=== PATIENT | female | born 2000 | race Two or more races ===

== ENCOUNTER 2021-05-08 16:50 | Emergency (ER) | payer OTHER ==
[2021-05-08 17:10] LABS: RAPID STREP SCREEN Negative (Negative)
--- NOTE | 2021-05-08 17:41 | ED Physician Documentation ---
PD HPI HEENT - Stated complaint Stated Complaint: THROAT PX - Chief complaint Chief Complaint: Heent - History obtained from History obtained from: Patient - Additional information Additional information: 2 days of sore throat without fever or cough. Pain better after ibuprofen. Review of Systems Constitutional: denies: Fever, Chills, Myalgias, Fatigue Nose: denies: Rhinorrhea / runny nose Cardiac: denies: Chest pain / pressure, Palpitations PD PAST MEDICAL HISTORY - Allergies Allergies/Adverse Reactions: Allergies Allergy/AdvReac Type Severity Reaction Status Date / Time No Known Drug Allergies Allergy Verified 05/08/21 16:54 PD ED PE NORMAL - Vitals Vital signs reviewed: Yes - General General: Alert and oriented X 3, No acute distress - HEENT HEENT: Other (Tonsils are red but not swollen or exudative, no adenopathy.) - Neuro Neuro: Alert and oriented X 3, Normal speech Results - Vitals Vitals: Vital Signs - 24 hr 05/08/21 16:54 Temperature 36.5 C Heart Rate 88 Respiratory 16 Rate Blood Pressure 110/65 O2 Saturation 100 Oxygen O2 Source Room air - Labs Labs: Laboratory Tests 05/08/21 16:58 Group A Strep Rapid Negative Departure - Departure Disposition: Home, Self Care Clinical Impression: Viral pharyngitis Condition: Good Record reviewed to determine appropriate education?: Yes Instructions: ED Pharyngitis Viral Report Pending Forms: Activity restrictions
[2021-05-08 17:49] VITALS: BP 101/72
== END 2021-05-08 17:48 | disposition home or self-care (01) ==
LOC: ED 16:50
DX: J02.8 Acute pharyngitis due to other specified organisms (principal)
CPT/HCPCS: 87070; 87077; 87430; 99282; 99283

== ENCOUNTER 2021-05-10 17:33 | Emergency (ER) | payer OTHER ==
[2021-05-10 18:16] LABS: RAPID STREP SCREEN Negative (Negative)
[2021-05-10] MEDS ORDERED: CHERRY SYRUP 10 ML UDC PO ONE (19:59)
[2021-05-10] MEDS ORDERED: IBUPROFEN 800 MG TABLET PO STA (19:59)
[2021-05-10] MEDS ORDERED: PENICILLIN VK 250 MG TABLET PO STA (19:59)
[2021-05-10] MEDS ORDERED: DEXAMETHASONE 10 MG/ML VIAL PO STA (19:59)
--- NOTE | 2021-05-10 20:03 | ED Physician Documentation ---
History of Present Illness - Stated complaint Stated Complaint: THROAT PX - Chief complaint Chief Complaint: Heent - History obtained from History obtained from: Patient - History of Present Illness Timing: How many days ago (3) Pain level max: 5 Pain level now: 5 - Additonal information Additional information: Patient with a sore throat for the past 3 days. Fever, exudates on tonsils. Was seen here previously and negative rapid strep. Her throat culture is positive for group C strep.With eating and drinking, nothing makes it better. Review of Systems Constitutional: denies: Fever, Chills Throat: reports: Sore throat GI: denies: Vomiting : denies: Now EGA PD PAST MEDICAL HISTORY - Past Medical History Past Medical History: No - Past Surgical History Past Surgical History: No - Present Medications Home Medications: Ambulatory Orders Medication Instructions Recorded Confirmed Ibuprofen [Motrin] 800 mg PO Q8H PRN #30 tablet 05/10/21 Ondansetron Odt [Zofran] 4 mg TL Q6H PRN #10 tablet 05/10/21 Penicillin V Potassium 500 mg PO Q6HR #40 tablet 05/10/21 - Allergies Allergies/Adverse Reactions: Allergies Allergy/AdvReac Type Severity Reaction Status Date / Time No Known Drug Allergies Allergy Verified 05/10/21 17:58 - Social History Does the pt smoke?: No Smoking Status: Never smoker Does the pt drink ETOH?: No Does the pt have substance abuse?: No - Immunizations Immunizations are current?: Yes PD ED PE NORMAL - Vitals Vital signs reviewed: Yes - General General: Alert and oriented X 3, No acute distress, Well developed/nourished - HEENT HEENT: PERRL, Moist mucous membranes, Other (Posterior oropharynx is erythematous with tonsillar exudates. Normal phonation. No trismus. Uvula midline.) - Neck Neck: Supple, no meningeal sign - Cardiac Cardiac: RRR, Strong equal pulses - Respiratory Respiratory: No respiratory distress, Clear bilaterally - Abdomen Abdomen: Soft, Non tender, Non distended - Derm Derm: Warm and dry, No rash - Extremities Extremities: No edema - Neuro Neuro: Alert and oriented X 3 - Psych Psych: Normal mood, Normal affect Results - Vitals Vitals: Oxygen O2 Source Room air - Labs Labs: Microbiology 05/10/21 18:04 Group A Strep Throat Culture - Final Throat MIXED OROPHARYNGEAL DEYVI PRESENT. NO BETA STREP PRESENT IN CULTURE. Laboratory Tests 05/10/21 05/10/21 18:04 18:04 Coronavirus (PCR) NEGATIVE Group A Strep Rapid Negative PD MEDICAL DECISION MAKING - ED course Complexity details: reviewed results, considered differential, d/w patient ED course: Patient with strep pharyngitis. Culture positive. We will place on antibiotics and have her follow-up with her doctor. No evidence of peritonsillar abscess. Patient counseled regarding signs and symptoms for which I believe and urgent re-evaluation would be necessary. Patient with good understanding of and agreement to plan and is comfortable going home at this time This document was made in part using voice recognition software. While efforts are made to proofread this document, sound alike and grammatical errors may occur. Departure - Departure Disposition: 01 Home, Self Care Clinical Impression: Group C streptococcal infection Condition: Good Instructions: ED Strep Pharyngitis Conf Follow-Up: Provider,Other [Primary Care Provider] - Prescriptions: Penicillin V Potassium 500 mg PO Q6HR #40 tablet Ibuprofen [Motrin] 800 mg PO Q8H PRN #30 tablet PRN Reason: PAIN &/OR FEVER Ondansetron Odt [Zofran] 4 mg TL Q6H PRN #10 tablet PRN Reason: Nausea / Vomiting Comments: Your prescriptions were sent to [facility] in [place]. Please follow-up with your doctor for further care. Return if you worsen. Take all antibiotics until gone. Discharge Date/Time: 05/10/21 20:08
[2021-05-10 20:10] VITALS: BP 111/65
== END 2021-05-10 20:08 | disposition home or self-care (01) ==
LOC: ED 17:33
DX: R07.0 Pain in throat (principal); B95.4 Other streptococcus as the cause of diseases classified elsewhere; Z20.822 Contact with and (suspected) exposure to COVID-19
CPT/HCPCS: 87070; 87430; 87635; 99283; A9270

== ENCOUNTER 2021-06-28 11:59 | Emergency (ER) | payer OTHER ==
[2021-06-28] MEDS ORDERED: SODIUM CHLORIDE 0.9% 1,000 ML IV STA (12:12)
[2021-06-28 12:39] LABS: BILIRUBIN,URINE NEGATIVE (NEGATIVE); CLARITY,URINE HAZY (CLEAR); GLUCOSE, URINE (UA) NEGATIVE (NEGATIVE); KETONES,URINE (UA) NEGATIVE (NEGATIVE); LEUKOCYTE ESTERASE, URINE NEGATIVE (NEGATIVE); NITRITE,URINE NEGATIVE (NEGATIVE); OCCULT BLOOD,URINE LARGE (NEGATIVE); PH,URINE 5.5 PH (5.0-7.5); PROTEIN,URINE NEGATIVE (NEGATIVE); UROBILINOGEN,URINE 0.2 (NORMAL) E.U./dL (NORMAL)
[2021-06-28 12:42] LABS: HCG UR QUAL NEGATIVE
[2021-06-28 12:48] LABS: BASOPHILS # (AUTO) 0.1 10^3/uL (0.0-0.1); BASOPHILS % (AUTO) 0.7 %; EOSINOPHILS % (AUTO) 0.3 %; HCT - HEMATOCRIT 40.1 % (37.0-47.0); HGB - HEMOGLOBIN 13.2 g/dL (12.0-16.0); LYMPHOCYTES # (AUTO) 2.6 10^3/uL (1.5-3.5); MEAN CORPUSCULAR HEMOGLOBIN 30.3 pg (27.0-31.0); MEAN CORPUSCULAR HGB CONC 32.9 g/dL (32.0-36.0); MEAN PLATELET VOLUME 10.5 fL (7.9-10.8); MONOCYTES # (AUTO) 0.5 10^3/uL (0.0-1.0); MONOCYTES % (AUTO) 6.7 %; NEUTROPHILS # (AUTO) 3.8 10^3/uL (1.5-6.6); PLT - PLATELET COUNT 295 10^3/uL (130-450); RED BLOOD COUNT 4.36 10^6/uL (4.20-5.40); RED CELL DISTRIBUTION WIDTH 13.2 % (12.0-15.0); WHITE BLOOD COUNT 6.9 x10^3/uL (4.8-10.8)
[2021-06-28 12:53] LABS: BACTERIA,URINE Rare /HPF (None Seen); RBC,URINE TNTC /HPF (0-5); SQUAMOUS EPITHELIAL CELL,UR RARE Squamous (<= Few); WBC,URINE 0-3 /HPF (0-5)
[2021-06-28 13:02] LABS: ALBUMIN 4.7 g/dL (3.2-5.5); ALBUMIN/GLOBULIN RATIO 1.5 (1.0-2.2); BILIRUBIN,TOTAL 1.3 mg/dL (0.2-1.0); CALCIUM 9.3 mg/dL (8.5-10.3); CREATININE 0.8 mg/dL (0.4-1.0); TOTAL PROTEIN 7.9 g/dL (6.7-8.2)
[2021-06-28] MEDS ORDERED: IOVERSOL 320 100 ML VIAL IVP ONE ×2 (14:03→16:29)
--- NOTE | 2021-06-28 14:34 | ED Physician Documentation ---
PD HPI ABD PAIN - Stated complaint Stated Complaint: LOWER R ABD PX - Chief complaint Chief Complaint: Abd Pain - History obtained from History obtained from: Patient - Additional information Additional information: Patient comes emergency department chief complaint of right lower quadrant abdominal pain for the last 3 days. She states it started as a little ache, and it seemed to get worse since. Patient states it feels slightly better today than it did yesterday. No fevers or chills. Patient has not had any urinary symptoms. She is on her period. No decreased appetite. No nausea or vomiting. No abdominal surgical history. Patient is otherwise healthy. Review of Systems Ten Systems: 10 systems reviewed and negative Constitutional: reports: Reviewed and negative Eyes: reports: Reviewed and negative Ears: reports: Reviewed and negative Nose: reports: Reviewed and negative Throat: reports: Reviewed and negative Cardiac: reports: Reviewed and negative Respiratory: reports: Reviewed and negative GI: reports: Abdominal Pain : reports: Reviewed and negative Skin: reports: Reviewed and negative Musculoskeletal: reports: Reviewed and negative Neurologic: reports: Reviewed and negative Psychiatric: reports: Reviewed and negative Endocrine: reports: Reviewed and negative Immunocompromised: reports: Reviewed and negative PD PAST MEDICAL HISTORY - Past Surgical History Past Surgical History: No - Present Medications Home Medications: Ambulatory Orders Medication Instructions Recorded Confirmed Ibuprofen [Motrin] 800 mg PO Q8H PRN #30 tablet 05/10/21 Ondansetron Odt [Zofran] 4 mg TL Q6H PRN #10 tablet 05/10/21 Penicillin V Potassium 500 mg PO Q6HR #40 tablet 05/10/21 - Allergies Allergies/Adverse Reactions: Allergies Allergy/AdvReac Type Severity Reaction Status Date / Time No Known Drug Allergies Allergy Verified 06/28/21 12:12 - Social History Does the pt smoke?: No Smoking Status: Never smoker Does the pt drink ETOH?: No Does the pt have substance abuse?: No - Immunizations Immunizations are current?: Yes PD ED PE NORMAL - Vitals Vital signs reviewed: Yes - General General: Alert and oriented X 3, No acute distress, Well developed/nourished - HEENT HEENT: Atraumatic, PERRL, EOMI, Moist mucous membranes - Neck Neck: Supple, no meningeal sign - Cardiac Cardiac: RRR, No murmur, Strong equal pulses - Respiratory Respiratory: No respiratory distress, Clear bilaterally - Abdomen Abdomen: Soft, Non distended, Other (Moderate right lower quadrant tenderness, no rebound or guarding.) - Derm Derm: Normal color, Warm and dry, No rash - Extremities Extremities: No deformity, No edema, No calf tenderness / cord - Neuro Neuro: Alert and oriented X 3, 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, Normal speech - Psych Psych: Normal mood, Normal affect Results - Vitals Vitals: Oxygen O2 Source Room air - Labs Labs: Laboratory Tests 06/28/21 06/28/21 06/28/21 12:29 12:44 12:44 WBC 6.9 RBC 4.36 Hgb 13.2 Hct 40.1 MCV 92.0 MCH 30.3 MCHC 32.9 RDW 13.2 Plt Count 295 MPV 10.5 Neut # (Auto) 3.8 Lymph # (Auto) 2.6 [place] # (Auto) 0.5 Eos # (Auto) 0.0 Baso # (Auto) 0.1 Absolute Nucleated RBC 0.00 Nucleated RBC % 0.0 Sodium 139 Potassium 4.0 Chloride 104 Carbon Dioxide 25 Anion Gap 10.0 BUN 15 Creatinine 0.8 Estimated GFR (MDRD) 91 Glucose 91 Calcium 9.3 Total Bilirubin 1.3 H AST 19 ALT 15 Alkaline Phosphatase 49 Total Protein 7.9 Albumin 4.7 Globulin 3.2 Albumin/Globulin Ratio 1.5 Lipase 34 Urine Color YELLOW Urine Clarity HAZY Urine pH 5.5 Ur Specific [place] 1.025 Urine Protein NEGATIVE Urine Glucose (UA) NEGATIVE Urine Ketones NEGATIVE Urine Occult Blood LARGE H Urine Nitrite NEGATIVE Urine Bilirubin NEGATIVE Urine Urobilinogen 0.2 (NORMAL) Ur Leukocyte Esterase NEGATIVE Urine RBC TNTC H Urine WBC 0-3 Ur Squamous Epith Cells RARE Squamous Urine Bacteria Rare Ur Microscopic Review INDICATED Urine Culture Comments NOT INDICATED Urine HCG, Qual NEGATIVE - Rads (name of study) CT abd/pelvis Radiology: Final report received, EMP read indepedently, See rad report (neg) PD MEDICAL DECISION MAKING - ED course Complexity details: reviewed results, re-evaluated patient, considered differential, d/w patient ED course: Laboratory studies were unremarkable. Urinalysis was positive for blood, not surprisingly since patient is on her period, and negative for . CT scan of the abdomen pelvis was ordered and negative. We have discussed the need for follow-up and the usual indications for return. Departure - Departure Disposition: 01 Home, Self Care Clinical Impression: Abdominal pain Qualifiers: Abdominal location: right lower quadrant Qualified Code(s): R10.31 - Right lower quadrant pain Condition: Stable Instructions: ED Abdominal Pain Female Non-Specific Abdominal Pain Comments: Your CT scan and labs look good. Your urinalysis does not show any concerning findings. No emergent condition has been found as a cause for your pain. Fact that it is starting to get better is a good sign, and most likely, this trend will continue. He may take ibuprofen and/or Tylenol as needed to help the discomfort. Discharge Date/Time: 06/28/21 16:17
[2021-06-28 14:41] VITALS: BP 89/70
--- NOTE | 2021-06-28 15:35 | CT Report ---
PROCEDURE: Abdomen/Pelvis W INDICATIONS: RLQ pain CONTRAST: IV CONTRAST: Optiray 320 ml: 100 PO CONTRAST: *NO PO CONTRAST TECHNIQUE: After the administration of IV contrast, 5 mm thick sections acquired from the diaphragms to the symp hysis. 5 mm thick coronal and sagittal reformats were acquired. For radiation dose reduction, the f ollowing was used: automated exposure control, adjustment of mA and/or kV according to patient size. COMPARISON: None. FINDINGS: Image quality: Excellent. ABDOMEN: Lung bases: Lung bases are clear. Heart size is normal. Solid organs: Liver and spleen are normal in size and enhancement. Gallbladder is within normal sheth its Biliary system is non dilated. Pancreas enhances normally. No adrenal nodules. Kidneys demons trate normal size and enhancement, without hydronephrosis. Peritoneum and bowel: Bowel loops demonstrate normal wall thickness and caliber. No pneumoperitoneu m. Small amount of free fluid within the pelvis. Normal appendix. Nodes and vessels: No retroperitoneal or mesenteric adenopathy by size criteria. Aorta and inferior vena cava are normal in size. Miscellaneous: No ventral hernias. PELVIS: Genitourinary: Bladder wall thickness is normal. Miscellaneous: No inguinal hernias or adenopathy. Bones: No suspicious bony lesions. No vertebral body compression fractures. IMPRESSION: 1. No acute process. 2. Normal appendix. 3. Small amount of free fluid in the pelvis, which is within physiological limits in a menstruating f emale, and suggestive of a recently ruptured follicular ovarian cyst.. Reviewed by: Keyon Whitfield MD on 06/28/2021 3:33 PM PST Approved by: Keyon Whitfield MD on 06/28/2021 3:33 PM PST Station ID: [id number]
== END 2021-06-28 16:17 | disposition home or self-care (01) ==
LOC: ED 11:59
DX: R10.31 Right lower quadrant pain (principal)
CPT/HCPCS: 36415; 74177; 80053; 81001; 81025; 83690; 85025; 99283; 99284; Q9967; 81003; 87086

== ENCOUNTER 2021-10-18 07:54 | Emergency (ER) | payer OTHER ==
[2021-10-18 08:06] VITALS: BP 121/82
[2021-10-18 08:23] LABS: BILIRUBIN,URINE NEGATIVE (NEGATIVE); GLUCOSE, URINE (UA) NEGATIVE (NEGATIVE); KETONES,URINE (UA) NEGATIVE (NEGATIVE); LEUKOCYTE ESTERASE, URINE NEGATIVE (NEGATIVE); NITRITE,URINE NEGATIVE (NEGATIVE); OCCULT BLOOD,URINE TRACE-INTA (NEGATIVE); PROTEIN,URINE NEGATIVE (NEGATIVE); UROBILINOGEN,URINE 1 (NORMAL) E.U./dL (NORMAL)
[2021-10-18 08:26] LABS: CLARITY,URINE CLEAR (CLEAR); HCG UR QUAL NEGATIVE
[2021-10-18 08:28] LABS: BASOPHILS % (AUTO) 0.4 %; EOSINOPHILS # (AUTO) 0.1 10^3/uL (0.0-0.7); EOSINOPHILS % (AUTO) 1.4 %; HCT - HEMATOCRIT 40.6 % (37.0-47.0); HGB - HEMOGLOBIN 13.3 g/dL (12.0-16.0); LYMPHOCYTES # (AUTO) 1.5 10^3/uL (1.5-3.5); LYMPHOCYTES % (AUTO) 26.6 %; MEAN CORPUSCULAR HEMOGLOBIN 29.6 pg (27.0-31.0); MEAN CORPUSCULAR HGB CONC 32.8 g/dL (32.0-36.0); MEAN CORPUSCULAR VOLUME 90.4 fL (81.0-99.0); MEAN PLATELET VOLUME 10.3 fL (7.9-10.8); MONOCYTES # (AUTO) 0.4 10^3/uL (0.0-1.0); MONOCYTES % (AUTO) 7.1 %; NEUTROPHILS # (AUTO) 3.7 10^3/uL (1.5-6.6); NEUTROPHILS % (AUTO) 64.5 %; PLT - PLATELET COUNT 286 10^3/uL (130-450); RED BLOOD COUNT 4.49 10^6/uL (4.20-5.40); RED CELL DISTRIBUTION WIDTH 12.6 % (12.0-15.0); WHITE BLOOD COUNT 5.7 x10^3/uL (4.8-10.8)
[2021-10-18 08:38] LABS: ALBUMIN 4.2 g/dL (3.2-5.5); ALBUMIN/GLOBULIN RATIO 1.2 (1.0-2.2); BILIRUBIN,TOTAL 1.6 mg/dL (0.2-1.0); CALCIUM 8.6 mg/dL (8.5-10.3); CREATININE 0.8 mg/dL (0.4-1.0); POTASSIUM 3.8 mmol/L (3.5-5.0); TOTAL PROTEIN 7.8 g/dL (6.7-8.2)
[2021-10-18] MEDS ORDERED: PANTOPRAZOLE 40 MG TABLET PO STA (08:54)
--- NOTE | 2021-10-18 08:57 | ED Physician Documentation ---
PD HPI ABD PAIN - Stated complaint Stated Complaint: UPPER ABD PX - Chief complaint Chief Complaint: Abd Pain - History obtained from History obtained from: Patient - Additional information Additional information: The patient comes to the emergency department with chief complaint of ongoing issues with upper abdominal burning, gurgling, and mild nausea. She states that her stomach was "growling very loudly" last night, and that she was having a lot of burning then, that the little better this morning. She denies any right upper quadrant abdominal pain. She has a very faint sense of right lower quadrant pain which has come and gone chronically. She has occasional diarrhea but mostly normal bowel movements. No vomiting. No fevers or chills. The patient states that she has had the symptoms on and off for months and has tried to get her doctor to do food allergy testing. She is also concerned because she has a strong family history of gastritis and ulcers. However, she states she does not feel that her doctor thinks that anything significant is going on and patient states she has been told to just wait and let it go away on its own. She is not currently on any GI medications. Patient is otherwise healthy and has no other complaints at this time. Review of Systems Ten Systems: 10 systems reviewed and negative Constitutional: reports: Reviewed and negative Eyes: reports: Reviewed and negative Ears: reports: Reviewed and negative Nose: reports: Reviewed and negative Throat: reports: Reviewed and negative Cardiac: reports: Reviewed and negative Respiratory: reports: Reviewed and negative GI: reports: Abdominal Pain, Nausea, Diarrhea : reports: Reviewed and negative Skin: reports: Reviewed and negative Musculoskeletal: reports: Reviewed and negative Neurologic: reports: Reviewed and negative Psychiatric: reports: Reviewed and negative Endocrine: reports: Reviewed and negative Immunocompromised: reports: Reviewed and negative PD PAST MEDICAL HISTORY - Past Surgical History Past Surgical History: No - Present Medications Home Medications: Ambulatory Orders Medication Instructions Recorded Confirmed Famotidine [Pepcid] 20 mg PO BID #60 tablet 10/18/21 Omeprazole 40 mg PO DAILY #30 cap 10/18/21 - Allergies Allergies/Adverse Reactions: Allergies Allergy/AdvReac Type Severity Reaction Status Date / Time No Known Drug Allergies Allergy Verified 10/18/21 08:02 - Social History Does the pt smoke?: No Smoking Status: Never smoker Does the pt drink ETOH?: No Does the pt have substance abuse?: No - Immunizations Immunizations are current?: Yes PD ED PE NORMAL - Vitals Vital signs reviewed: Yes - General General: Alert and oriented X 3, No acute distress, Well developed/nourished - HEENT HEENT: Atraumatic, PERRL, EOMI, Moist mucous membranes - Neck Neck: Supple, no meningeal sign - Cardiac Cardiac: RRR, No murmur, Strong equal pulses - Respiratory Respiratory: No respiratory distress, Clear bilaterally - Abdomen Abdomen: Soft, Non distended, Other (Slight right lower quadrant tenderness, no rebound or guarding.) - Derm Derm: Normal color, Warm and dry, No rash - Extremities Extremities: No deformity, No edema - Neuro Neuro: Alert and oriented X 3, 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, Normal speech - Psych Psych: Normal mood, Normal affect Results - Vitals Vitals: Vital Signs - 24 hr 10/18/21 08:02 Temperature 37.3 C Heart Rate 64 Respiratory 19 Rate Blood Pressure 121/82 H O2 Saturation 100 Oxygen O2 Source Room air - Labs Labs: Laboratory Tests 10/18/21 10/18/21 10/18/21 08:08 08:17 08:17 WBC 5.7 RBC 4.49 Hgb 13.3 Hct 40.6 MCV 90.4 MCH 29.6 MCHC 32.8 RDW 12.6 Plt Count 286 MPV 10.3 Neut # (Auto) 3.7 Lymph # (Auto) 1.5 [place] # (Auto) 0.4 Eos # (Auto) 0.1 Baso # (Auto) 0.0 Absolute Nucleated RBC 0.00 Nucleated RBC % 0.0 Sodium 134 L Potassium 3.8 Chloride 104 Carbon Dioxide 25 Anion Gap 5.0 L BUN 13 Creatinine 0.8 Estimated GFR (MDRD) 91 Glucose 95 Calcium 8.6 Total Bilirubin 1.6 H AST 19 ALT 13 Alkaline Phosphatase 44 Total Protein 7.8 Albumin 4.2 Globulin 3.6 Albumin/Globulin Ratio 1.2 Lipase 37 Urine Color YELLOW Urine Clarity CLEAR Urine pH 6.0 Ur Specific [place] 1.020 Urine Protein NEGATIVE Urine Glucose (UA) NEGATIVE Urine Ketones NEGATIVE Urine Occult Blood TRACE-INTA Urine Nitrite NEGATIVE Urine Bilirubin NEGATIVE Urine Urobilinogen 1 (NORMAL) Ur Leukocyte Esterase NEGATIVE Ur Microscopic Review NOT INDICATED Urine Culture Comments NOT INDICATED Urine HCG, Qual NEGATIVE PD MEDICAL DECISION MAKING - ED course Complexity details: reviewed results, re-evaluated patient, considered differential, d/w patient ED course: The patient was worked up with labs and UA, which were unremarkable. She was given a dose of Protonix here in the emergency department. I did not feel that imaging was indicated, based on the patient's benign abdominal exam, but I do think that she may benefit from endoscopy and possibly GI referral just to give her a better idea of what is causing her symptoms and what can be done about it. I have prescribed omeprazole for the patient for at home. I have given her the contact information for GI clinic at [facility], though I have warned the patient that he may require referral from her primary care physician. We have discussed the usual indications for follow-up and return. Departure - Departure Disposition: Home, Self Care Clinical Impression: GERD (gastroesophageal reflux disease) Qualifiers: Esophagitis presence: esophagitis presence not specified Qualified Code(s): K21.9 - Gastro-esophageal reflux disease without esophagitis Gastritis Qualifiers: Gastritis type: unspecified gastritis Chronicity: chronic Gastritis bleeding: without bleeding Qualified Code(s): K29.50 - Unspecified chronic gastritis without bleeding Condition: Stable Instructions: ED PUD Vs Gastritis, ED GERD Follow-Up: MULU BAUER MD [Physician No Access] - Chetna Arias MD [Physician No Access] - VILMA WINN MD [Physician No Access] - DANGELO DE LA ROSA MD [Physician No Access] - Prescriptions: Omeprazole 40 mg PO DAILY #30 cap Famotidine [Pepcid] 20 mg PO BID #60 tablet Comments: You may call the gastroenterology clinic to make an appointment. They may require a referral from your primary doctor, however,. [facility] [place].
== END 2021-10-18 09:11 | disposition home or self-care (01) ==
LOC: ED 07:54
DX: K21.9 Gastro-esophageal reflux disease without esophagitis (principal); K29.50 Unspecified chronic gastritis without bleeding
CPT/HCPCS: 36415; 80053; 81003; 81025; 83690; 85025; 99283; 99284; A9270; 81001; 87086

== ENCOUNTER 2022-07-08 10:18 | Emergency (ER) | payer OTHER ==
[2022-07-08 10:26] VITALS: BP 108/82
--- NOTE | 2022-07-08 10:29 | ED Physician Documentation ---
PD HPI HEENT - Stated complaint Stated Complaint: RT SIDE FACE PX,CHEST PX - Chief complaint Chief Complaint: General - History obtained from History obtained from: Patient - History of Present Illness Timing - onset: How many hours ago (3), Today Timing - duration: Minutes (1) Timing - details: Abrupt onset, Now resolved Location: Other (had onset of right chest/scapular area pain that went to right side of neck/jaw. Lasted for a minute then went away. No pain since. Has had several episodes of right upper abd pain after eating the past week, transient. No cough, dyspnea. No exertional dyspnea/pain.) Associated symptoms: No: Fever, Congestion, Facial swelling, Cough Similar symptoms before: Has not had sx before Recently seen: Not recently seen, Other (did drive from [place] last week, but no leg swelling/pains.) Review of Systems Constitutional: denies: Fever, Chills Nose: denies: Rhinorrhea / runny nose, Congestion Throat: denies: Oral lesions / sores, Sore throat Cardiac: denies: Palpitations, Pedal edema, Calf pain Respiratory: denies: Dyspnea, Cough, Wheezing GI: denies: Nausea, Vomiting, Diarrhea Skin: denies: Rash, Lesions Neurologic: denies: Focal weakness, Numbness, Near syncope PD PAST MEDICAL HISTORY - Past Medical History Past Medical History: No - Past Surgical History Past Surgical History: No - Present Medications Home Medications: Ambulatory Orders Medication Instructions Recorded Confirmed Famotidine [Pepcid] 20 mg PO BID #60 tablet 10/18/21 Omeprazole 40 mg PO DAILY #30 cap 10/18/21 Famotidine [Pepcid] 20 mg PO DAILY #20 tablet 07/08/22 - Allergies Allergies/Adverse Reactions: Allergies Allergy/AdvReac Type Severity Reaction Status Date / Time No Known Drug Allergies Allergy Verified 07/08/22 10:26 - Social History Does the pt smoke?: No Smoking Status: Never smoker Does the pt drink ETOH?: No Does the pt have substance abuse?: No - Immunizations Immunizations are current?: Yes PD ED PE NORMAL - Vitals Vital signs reviewed: Yes - General General: Alert and oriented X 3, No acute distress, Well developed/nourished - Neck Neck: Supple, no meningeal sign, No adenopathy - Cardiac Cardiac: RRR, No murmur - Respiratory Respiratory: Clear bilaterally - Abdomen Abdomen: Normal bowel sounds, Soft, Non distended, Other (mild tender RUQ without guarding. ) - Derm Derm: Normal color, Warm and dry - Extremities Extremities: Normal ROM s pain, No edema, No calf tenderness / cord - Neuro Neuro: Alert and oriented X 3, No motor deficit, Normal speech Results - Vitals Vitals: Vital Signs - 24 hr 07/08/22 10:24 Temperature 37.8 C Heart Rate 63 Respiratory 16 Rate Blood Pressure 108/82 H O2 Saturation 100 Oxygen O2 Source Room air - EKG (time done) 11:06 Rate: Rate (enter#) (57) Rhythm: NSR Thompson: Normal Intervals: Normal [place] QRS: Normal Ischemia: Normal ST segments. No: ST elevation c/w ischemia, ST depression - Rads (name of study) upper abd U/S Radiology: Prelim report reviewed (normal), See rad report PD MEDICAL DECISION MAKING - ED course Complexity details: considered differential (transient pain this morning right chest/upper back to side of face. ECG normal. Has had some pain RUQ with eating, so U/S to eval GB. Normal. Consider gastritis. Nonpleuritic pain and no findings to suggest PE. PERC neg. ), d/w patient Departure - Departure Disposition: 01 Home, Self Care Clinical Impression: Chest pain Condition: Stable Record reviewed to determine appropriate education?: Yes Instructions: ED Chest Pain Atypical Unkn Cause Follow-Up: LISY LEVY ARNP [Primary Care Provider] - Prescriptions: Famotidine [Pepcid] 20 mg PO DAILY #20 tablet Comments: Your EKG appears normal without any signs of abnormal heart rhythm nor irritation of the heart. It is unclear the cause of your chest pain this morning. Regarding the episodes of lower thoracic flank pain after meals, consideration would be for an irritation of the stomach such as gastritis or duodenitis. Your ultrasound does not show any abnormality of the gallbladder pancreas liver. I would suggest perhaps famotidine daily for the next few weeks. See if your without the symptoms overall. Discharge Date/Time: 07/08/22 12:24
--- NOTE | 2022-07-08 12:11 | Ultrasound Report ---
PROCEDURE: Abdomen Limited INDICATIONS: episodic right abd/chest pains few days TECHNIQUE: Real-time scanning was performed of the abdominal and retroperitoneal organs, with image documentatio n. COMPARISON: CT abdomen and pelvis 06/28/2021. FINDINGS: Liver: Liver is normal in size and homogeneous in echotexture. Gallbladder: Gallbladder is nondistended. No stones or sludge. No gallbladder wall thickening. No per icholecystic fluid. Negative sonographic Mora sign. Biliary ducts: Intrahepatic bile ducts are non-dilated. Extrahepatic bile duct caliber measures 3 m m. Normal is 6-7 mm or less in diameter, or 10 mm or less post-cholecystectomy. Pancreas: Visualized portions of the pancreas are sonographically normal. Tail was not well seen. Kidneys: Right kidney measures 9.8 cm. Cortex 1.8 cm. No hydronephrosis. Aorta: Visualized aorta is normal in caliber at less than 3 cm. IVC: Intrahepatic inferior vena cava is patent. Miscellaneous: No free abdominal fluid. IMPRESSION: No acute cholecystitis. No gallstones. Reviewed by: Hal Cash MD on 07/08/2022 12:10 PM PST Approved by: Hal Cash MD on 07/08/2022 12:10 PM PST Station ID: [id number]
== END 2022-07-08 12:24 | disposition home or self-care (01) ==
LOC: ED 10:18
DX: R07.9 Chest pain, unspecified (principal); R10.30 Lower abdominal pain, unspecified
CPT/HCPCS: 93005; 99282; 99284

== ENCOUNTER 2023-06-01 14:33 | Day surgery (SDC) | payer OTHER ==
[2023-06-01 14:47] VITALS: O2SAT 100
--- NOTE | 2023-06-01 14:48 | ED Physician Documentation ---
PD HPI FEMALE - Stated complaint Stated Complaint: ABD PX - Chief complaint Chief Complaint: Abd Pain - History obtained from History obtained from: Patient - Additional information Additional information: Patient is a 23-year-old female, G1, P0 presenting for evaluation of generalized lower abdominal pain for the past 2 days. She states that 1 week ago she had similar pains for 2 days but it resolved on its own. She denies associated nausea or vomiting. She reports the pain is sharp and constant. Nothing makes it better or worse. She believes she is approximately 9 weeks but an ultrasound that was attempted recently was not able to show an IUP as a stated she was too early. She was post to have a follow-up ultrasound but has not had it yet. She is following with the nurse midwives. She denies vaginal bleeding. No fever, chest pain, shortness of air or dysuria. Review of Systems Constitutional: denies: Fever Cardiac: denies: Chest pain / pressure Respiratory: denies: Dyspnea GI: reports: Abdominal Pain. denies: Vomiting, Diarrhea : denies: Dysuria, Vaginal bleeding PD PAST MEDICAL HISTORY - Past Surgical History Past Surgical History: No - Present Medications Home Medications: Ambulatory Orders Medication Instructions Recorded Confirmed No Known Home Medications 06/01/23 06/01/23 - Allergies Allergies/Adverse Reactions: Allergies Allergy/AdvReac Type Severity Reaction Status Date / Time No Known Drug Allergies Allergy Verified 06/01/23 14:41 - Social History Does the pt smoke?: No Smoking Status: Never smoker Does the pt drink ETOH?: No Does the pt have substance abuse?: No - Immunizations Immunizations are current?: Yes PD ED PE NORMAL - General General: Alert and oriented X 3, No acute distress, Well developed/nourished - HEENT HEENT: Atraumatic - Neck Neck: Supple, no meningeal sign - Respiratory Respiratory: No respiratory distress, Clear bilaterally - Abdomen Abdomen: Normal bowel sounds, Soft, Non distended, Other (Mild epigastric tenderness, right lower quadrant tenderness with negative Rosving) - Derm Derm: Warm and dry - Neuro Neuro: Normal speech Results - Vitals Vitals: Vital Signs - 24 hr 06/01/23 06/01/23 14:36 16:23 Temperature 36.7 C 36.1 C L Heart Rate 61 58 L Respiratory 14 16 Rate Blood Pressure 110/72 112/70 O2 Saturation 100 100 Oxygen O2 Source Room air - Labs Labs: Laboratory Tests 06/01/23 06/01/23 06/01/23 14:47 14:55 14:56 WBC 13.2 H RBC 4.21 Hgb 12.5 Hct 37.1 MCV 88.1 MCH 29.7 MCHC 33.7 RDW 12.5 Plt Count 297 MPV 11.2 H Neut # (Auto) 10.6 H Lymph # (Auto) 1.6 [place] # (Auto) 0.8 Eos # (Auto) 0.0 Baso # (Auto) 0.1 Absolute Nucleated RBC 0.00 Nucleated RBC % 0.0 Sodium Potassium Chloride Carbon Dioxide Anion Gap BUN Creatinine Estimated GFR (MDRD) Glucose Calcium Total Bilirubin AST ALT Alkaline Phosphatase Total Protein Albumin Globulin Albumin/Globulin Ratio Lipase Beta HCG, Quant Urine Color YELLOW Urine Clarity CLEAR Urine pH 6.0 Ur Specific Joy 1.020 Urine Protein NEGATIVE Urine Glucose (UA) NEGATIVE Urine Ketones >=80 H Urine Occult Blood NEGATIVE Urine Nitrite NEGATIVE Urine Bilirubin NEGATIVE Urine Urobilinogen 0.2 (NORMAL) Ur Leukocyte Esterase NEGATIVE Ur Microscopic Review NOT INDICATED Urine Culture Comments NOT INDICATED Blood Type A POSITIVE 06/01/23 14:56 WBC RBC Hgb Hct MCV MCH MCHC RDW Plt Count MPV Neut # (Auto) Lymph # (Auto) [place] # (Auto) Eos # (Auto) Baso # (Auto) Absolute Nucleated RBC Nucleated RBC % Sodium 135 Potassium 3.5 Chloride 102 Carbon Dioxide 23 Anion Gap 10.0 BUN 9 Creatinine 0.6 Estimated GFR (MDRD) 124 Glucose 80 Calcium 9.3 Total Bilirubin 1.0 AST 13 ALT 10 Alkaline Phosphatase 45 Total Protein 7.6 Albumin 4.2 Globulin 3.4 Albumin/Globulin Ratio 1.2 Lipase 21 Beta HCG, Quant 742736.1 Urine Color Urine Clarity Urine pH Ur Specific Joy Urine Protein Urine Glucose (UA) Urine Ketones Urine Occult Blood Urine Nitrite Urine Bilirubin Urine Urobilinogen Ur Leukocyte Esterase Ur Microscopic Review Urine Culture Comments Blood Type PD Medical Decision Making - ED course Complexity details: reviewed results, re-evaluated patient, d/w patient ED course: Patient is a 23-year-old female G1, P0 who is approximately 9 weeks presenting for evaluation of generalized abdominal pain. On exam she does appear to have tenderness in the right lower quadrant. She has not had a confirmatory ultrasound for an IUP thus an OB ultrasound was initially ordered. CBC and chemistries were also reviewed. Patient has a mildly elevated white count of 13. OB ultrasound confirms an IUP of 9 weeks. On reexamination patient continues to have right lower quadrant tenderness and I do not see any findings on her OB ultrasound to explain this thus I still have a concern for appendicitis. A right lower quadrant ultrasound was ordered and there are findings concerning for acute appendicitis. I discussed with general surgery w ho evaluated the patient at the bedside and also agrees. Plan for OR. Per surgery no need for antibiotics at this time. Patient has declined pain medication. 1619 - D/W Dr. Bullock. She will come see the patient. 162 - Patient updated regarding the plan and concerns for appendicitis. She is aware that general surgery is going to come evaluate her. She declines the need for any pain medications at this time. 1702 - Dr. Frost has evaluated the patient at the bedside and agrees that exam, history and ultrasound findings are all concerning for acute appendicitis. Plans to take her to the OR which patient has agreed to. Per Dr. Frost patient does not need a dose of antibiotics at this time and she will give her a dose right before surgery. Request LR at 125 ml per hour. Departure - Departure Disposition: ED Transfer to [facility] Clinical Impression: Acute appendicitis, First trimester Condition: Stable Forms: PCP List
[2023-06-01 15:02] LABS: BASOPHILS # (AUTO) 0.1 10^3/uL (0.0-0.1); BASOPHILS % (AUTO) 0.5 %; EOSINOPHILS % (AUTO) 0.1 %; HCT - HEMATOCRIT 37.1 % (37.0-47.0); HGB - HEMOGLOBIN 12.5 g/dL (12.0-16.0); LYMPHOCYTES # (AUTO) 1.6 10^3/uL (1.5-3.5); LYMPHOCYTES % (AUTO) 12.5 %; MEAN CORPUSCULAR HEMOGLOBIN 29.7 pg (27.0-31.0); MEAN CORPUSCULAR HGB CONC 33.7 g/dL (32.0-36.0); MEAN CORPUSCULAR VOLUME 88.1 fL (81.0-99.0); MEAN PLATELET VOLUME 11.2 fL (7.9-10.8); MONOCYTES # (AUTO) 0.8 10^3/uL (0.0-1.0); NEUTROPHILS # (AUTO) 10.6 10^3/uL (1.5-6.6); NEUTROPHILS % (AUTO) 80.6 %; PLT - PLATELET COUNT 297 10^3/uL (130-450); RED BLOOD COUNT 4.21 10^6/uL (4.20-5.40); RED CELL DISTRIBUTION WIDTH 12.5 % (12.0-15.0); WHITE BLOOD COUNT 13.2 x10^3/uL (4.8-10.8)
[2023-06-01 15:12] LABS: BILIRUBIN,URINE NEGATIVE (NEGATIVE); GLUCOSE, URINE (UA) NEGATIVE (NEGATIVE); KETONES,URINE (UA) >=80 mg/dL (NEGATIVE); LEUKOCYTE ESTERASE, URINE NEGATIVE (NEGATIVE); NITRITE,URINE NEGATIVE (NEGATIVE); OCCULT BLOOD,URINE NEGATIVE (NEGATIVE); PROTEIN,URINE NEGATIVE (NEGATIVE); UROBILINOGEN,URINE 0.2 (NORMAL) E.U./dL (NORMAL)
[2023-06-01 15:14] LABS: CLARITY,URINE CLEAR (CLEAR)
[2023-06-01 15:49] LABS: ALBUMIN 4.2 g/dL (3.2-5.5); ALBUMIN/GLOBULIN RATIO 1.2 (1.0-2.2); CALCIUM 9.3 mg/dL (8.5-10.3); CREATININE 0.6 mg/dL (0.6-1.3); POTASSIUM 3.5 mmol/L (3.5-4.5); TOTAL PROTEIN 7.6 g/dL (6.4-8.9)
--- NOTE | 2023-06-01 16:03 | Ultrasound Report ---
PROCEDURE: OB First Trimester INDICATIONS: lower abd pain x 2 days; 9weeks OUTSIDE/PRIOR DATING DATA: Last menstrual period (LMP): 02/21/2023. LMP-based estimated date of delivery (OLLIE): 11/28/2023. First dating scan (date and location): 06/01/2023, [facility] emergency department Estimated date of delivery (OLLIE) from first dating scan: 12/31/2023. TECHNIQUE: Real-time scanning was performed of the fetus and maternal pelvic organs, with image documentation. COMPARISON: FINDINGS: Intrauterine gestational sac present. Embryo: 2.76 cm, 19 weeks, 4 days Heart rate: 160 bpm. Other: No perigestational fluid collection. Measurement variability in dating: +/- 4 weeks by LMP, +/- 7 days by mean sac diameter (use before 6 weeks gestation if crown-rump length not able to be measured), +/- 5 days by crown-rump length (6-12 weeks gestation). Maternal organs: Ovaries appear within normal limits. IMPRESSION: 1. Single live intrauterine gestation with a gestational age of 9 weeks 4 days by crown-rump length. Reviewed by: Priscilla Bateman MD on 06/01/2023 4:01 PM PDT Approved by: Priscilla Bateman MD on 06/01/2023 4:01 PM PDT Station ID: [id number]
--- NOTE | 2023-06-01 16:29 | Ultrasound Report ---
PROCEDURE: Abdomen Limited INDICATIONS: RLQ pain/eval appendix TECHNIQUE: Real-time focused scanning was performed of the abdomen with attention to the appendix, with image do cumentation. COMPARISON: None FINDINGS: Appendix visualization: The appendix is visualized. However, origin off the cecum is definitively vi sualized. Appendix measurements: Appendix measures up to 14 mm in diameter at the mid portion. Associated findings: Echogenic fat: Echogenic fat is present. Appendiceal compressibility: Noncompressible appendix Appendicoliths: Appendicoliths are noted. Nearby free fluid: Absent Lymphadenopathy: Absent Tenderness on exam: Appendix is painful during examination and direct compression. IMPRESSION: Sonographic findings compatible with acute appendicitis. Preliminary findings were relayed to Dr. Orlando by the precision dyer at 1615 hours. Reviewed by: Jama Guerrier MD on 06/01/2023 4:27 PM PDT Approved by: Jama Guerrier MD on 06/01/2023 4:27 PM PDT Station ID: [id number]
[2023-06-01] MEDS ORDERED: ONDANSETRON 4 MG/2 ML VIAL IVP PRN ×3 (17:18→18:58)
[2023-06-01] MEDS ORDERED: MORPHINE 2 MG/ML CARPUJECT IVP PRN (17:18)
[2023-06-01] MEDS ORDERED: ACETAMINOPHEN 500 MG TABLET PO STA (17:18)
--- NOTE | 2023-06-01 17:22 | SURGERY HX AND PHYSICAL(T) ---
Surgical History & Physical - Chief Complaint/HPI Chief Complaint: I'm having pain History of Present Illness: This is a very pleasant 23-year-old female who has had some intermittent abdominal pains for the last week and a half. Last night, she had periumbilical and left lower quadrant pain that kept her from sleeping well. Today, she is felt a little uneasy and therefore has not had anything significant to eat or drink. This afternoon, she began having right lower quadrant abdominal pain, prompting her to come to the emergency department. Work-up here is concerning for acute appendicitis, therefore I have been consulted. At the time of my exam, the patient is sitting in her bed and resting comfortably. She denies any nausea or vomiting. She denies any fevers or chills. She had a regular bowel movement yesterday. Prior to her , she denies any history of similar pain. At this time, she complains mostly of right lower quadrant abdominal pain that is made worse with activity, movement, and riding in the car. It is also made worse with palpation, and made better with rest. Notably, she is 8 weeks confirmed by ultrasound today.She has no history of previous abdominal surgeries. - PMH/PSH/Social Hx Does the pt have a hx of MRSA?: No Neurological History: None Eyes, Ears, Nose, Throat: None Cardiovascular: None Respiratory: None Skin: None Endocrine/Autoimmune: None Gastrointestinal: None SOLDERER DIPPER: None, Other Is Patient ?: Yes Urinary: None Musculoskeletal: None Blood Disorders: None Psychiatric: None PSH Other: Patient denies previous abdominal surgery. Smoking Status: Never smoker Does the pt drink ETOH?: No Does the pt have substance abuse?: No - Family Hx Family Hx: Unremarkable - Home Meds and Allergies Home Medications: No Known Home Medications 06/01/23 Allergies/Adverse Reactions: Allergies Allergy/AdvReac Type Severity Reaction Status Date / Time No Known Drug Allergies Allergy Verified 06/01/23 14:41 - Review of Systems Constitutional: Other (A complete 10 point review of symptoms is otherwise n egative except for that noted in HPI and PMH.) - Vital Signs Heart Rate: 58 Blood Pressure: 112/70 Temperature: 36.1 C Respiratory Rate: 16 O2 Saturation: 100 Weight (kg): 70.307 kg Height: 1.57 m - Physical Exam Comments/Other: GEN: No acute distress, appears stated age, alert and oriented HEENT: NCAT, MMM, EOMI NEURO: CN II-XII grossly intact, no obvious focal deficits CV: RRR, no murmer appreciated PULM: CTAB, no wheezes appreciated ABD: soft, with moderate right lower quadrant tenderness to palpation, mild left lower quadrant tenderness to palpation, no rebound or guarding, negative Rovsing sign, positive psoas sign. CIRCULATORY: no clubbing, cyanosis, or edema SKIN: no lesions appreciated LYMPH: no obvious lymphadenopathy MSK: 4/4 strength in all extremities PSYCH: Affect is appropriate The patient had an OB ultrasound today that confirmed a 9-week viable, intrauterine . She also had an abdominal ultrasound which reveals a blind loop structure measuring 15 mm in greatest diameter, without probable stone at the orifice. This is consistent with acute appendicitis. I personally reviewed the images and reports from the above studies. - Patient Review Patient Review: Problems were reviewed with the patient during this visit. Medications were reviewed with the patient during this visit. Allergies were reviewed this patient during this visit. Pertinent Tests Reviewed: All pertitent test for this patient were reviewed. - Assessment & Plan Assessment and Plan: This is a 23-year-old female with: 1. Acute appendicitis The patient's laboratory studies, history, physical exam, and imaging are consistent with this diagnosis. I discussed the differential diagnosis which includes acute appendicitis and ligamentous pain in the pelvis early in with the patient. The patient's elevated white blood cell count, physical exam, and ultrasound findings favor appendicitis. We discussed the risks, benefits, and alternatives of laparoscopic appendectomy including bleeding, infection, damage to surrounding structures, miscarriage, and the need for further surgeries or procedures. We discussed that delaying surgery with acute appendicitis carries an increased risk beyond performing surgery and that antibiotics alone is contraindicated in patients. The patient voiced understanding, her questions were answered, and she wished to proceed with surgery at this time. A consent was signed by the patient in the emergency department. The patient will be given the rest medications that are safe for . The patient will remain n.p.o. until after surgery We will proceed with emergent laparoscopic appendectomy 2. , 8 weeks, viable I spoke with the OB provider on-call. The only additional recommendation for this patient is to obtain an OB ultrasound after surgery to confirm a h eartbeat. This will be ordered in recovery. I plan to discharge the patient either later tonight or early tomorrow morning. She will need to follow-up with me in clinic in 2 weeks.
[2023-06-01] MEDS ORDERED: metroNIDAZOLE 500 MG/100 ML 500 MG/100 ML BAG IV ONE (17:30)
[2023-06-01] MEDS ORDERED: ceFAZolin (2G) 2 GM in SODIUM CHLORIDE 0.9% 100ML 100 ML IV ONE (17:30)
[2023-06-01] MEDS ORDERED: BUPIVACAINE 0.25% PF 30 ML VIAL ONE (17:32)
[2023-06-01] MEDS ORDERED: LIDOCAINE 1%-EPI 1:100000 20 ML MDV ONE (17:32)
[2023-06-01] MEDS ORDERED: fentaNYL 100 MCG/2 ML VIAL ONE ×2 (17:50→19:23)
[2023-06-01] MEDS ORDERED: LIDOCAINE-PF 2% 10 ML AMP SUBQ ONE (17:50)
[2023-06-01] MEDS ORDERED: PROPOFOL 200 MG/20 ML VIAL IVP ONE (17:50)
[2023-06-01] MEDS ORDERED: ROCURONIUM 50 MG/5 ML VIAL ONE (17:51)
[2023-06-01] MEDS ORDERED: ceFAZolin 1 GM VIAL ONE (17:58)
[2023-06-01] MEDS ORDERED: metroNIDAZOLE 500 MG/100 ML 500 MG/100 ML BAG ONE (17:58)
[2023-06-01] MEDS ORDERED: ACETAMINOPHEN 1,000 MG/100 ML 1,000 MG/100 ML BAG IV ONE (17:58)
[2023-06-01] MEDS ORDERED: BUPIVACAINE 0.25% PF 30 ML VIAL SUBQ ONE (18:00)
[2023-06-01] MEDS ORDERED: LACTATED RINGERS 1,000 ML IV SCH ×2 (18:00→19:00)
[2023-06-01] MEDS ORDERED: SODIUM CHLORIDE 0.9% 1,000 ML IV SCH (18:00)
[2023-06-01] MEDS ORDERED: LIDOCAINE 1%-EPI 1:100000 20 ML MDV SUBQ ONE (18:00)
[2023-06-01] MEDS ORDERED: ePHEDrine 50 MG/ML VIAL IVP ONE (18:19)
[2023-06-01] MEDS ORDERED: ONDANSETRON 4 MG/2 ML VIAL ONE (18:40)
--- NOTE | 2023-06-01 18:41 | ANESTHESIA ---
Pre-Anesthesia VS, & Labs - Diagnosis acute appendicitis - Procedure laparoscopic appendectomy Vital Signs: Temp Pulse Resp BP Pulse Ox O2 Flow Rate 36.1 C L 58 L 16 112/70 100 06/01/23 17:31 06/01/23 17:31 06/01/23 17:31 06/01/23 17:31 06/01/23 17:31 Height: 5 ft 2 in Weight (kg): 70.307 kg Body Mass Index: 28.3 BMI Classification: Overweight - NPO >8 hours - Is Patient ?: Yes - Lab Results Current Lab Results: Laboratory Tests 06/01/23 14:56: Sodium 135, Potassium 3.5, Chloride 102, Carbon Dioxide 23, Anion Gap 10.0, BUN 9, Creatinine 0.6, Estimated GFR (MDRD) 124, Glucose 80, Calcium 9.3, Total Bilirubin 1.0, AST 13, ALT 10, Alkaline Phosphatase 45, Total Protein 7.6, Albumin 4.2, Globulin 3.4, Albumin/Globulin Ratio 1.2, Lipase 21, Beta HCG, Quant [id number] 06/01/23 14:56: Blood Type A POSITIVE 06/01/23 14:47: WBC 13.2 H, RBC 4.21, Hgb 12.5, Hct 37.1, MCV 88.1, MCH 29.7, MCHC 33.7, RDW 12.5, Plt Count 297, MPV 11.2 H, Neut # (Auto) 10.6 H, Lymph # (Auto) 1.6, [place] # (Auto) 0.8, Eos # (Auto) 0.0, Baso # (Auto) 0.1, Absolute Nucleated RBC 0.00, Nucleated RBC % 0.0 Fish Bones: 06/01/23 14:47 06/01/23 14:56 Home Medications and Allergies Active Medications Lactated Ringer's (Lr) 1,000 mls @ 125 mls/hr IV .Q8H KEENAN Sodium Chloride (Normal Saline 0.9%) 1,000 mls @ 125 mls/hr IV .Q8H KEENAN Morphine Sulfate (Morphine 2 Mg/Ml Carpuject) 4 mg IVP Q2HR PRN PRN Reason: PAIN >8 Ondansetron HCl (Ondansetron 4 Mg/2 Ml Vial) 4 mg IVP Q6HR PRN PRN Reason: Nausea / Vomiting Allergies/Adverse Reactions: Allergies Allergy/AdvReac Type Severity Reaction Status Date / Time No Known Drug Allergies Allergy Verified 06/01/23 14:41 Anes History & Medical History - Anesthetic History Anesthesia Complications: reports: No previous complications - Medical History Cardiovascular: reports: None Pulmonary: reports: None Gastrointestinal: reports: None Urinary: reports: None Neuro: reports: None Musculoskeletal: reports: None Endocrine/Autoimmune: reports: None Blood Disorders: reports: None Skin: reports: None Smoking Status: Never smoker History of Cancer?: No - Surgical History Gynecologic: reports: Other (8 weeks ) Other Past Surgical History: Patient denies previous abdominal surgery. Exam General: Alert, Oriented x3, Cooperative Dental: WNL Mouth Opening: Greater than 4 Fingerbreadths Neck Mobility: Normal Mallampati classification: I Thyromental Distance: greater than 6 cm Respiratory: Lungs clear Cardiovascular: Regular rate, Normal S1, Normal S2 Plan Anesthesia Type: General Consent for Procedure(s) Verified and Reviewed: Yes Code Status: Attempt Resuscitation ASA classification: 2-Mild systemic disease Is this case an emergency?: Yes
[2023-06-01] MEDS ORDERED: ATROPINE ABBOJECT 1 MG/10 ML SYRINGE IVP PRN (18:42)
[2023-06-01] MEDS ORDERED: NALOXONE 0.4 MG/ML VIAL IVP PRN (18:42)
[2023-06-01] MEDS ORDERED: HYDROmorphone 0.5 MG/0.5 ML SYRINGE IVP PRN ×2 (18:42→18:58)
[2023-06-01] MEDS ORDERED: ePHEDrine 50 MG/ML VIAL IVP PRN (18:42)
[2023-06-01] MEDS ORDERED: SUGAMMADEX 200 MG/2 ML VIAL IVP ONE (18:55)
--- NOTE | 2023-06-01 18:55 | OPERATIVE REPORT ---
Operative Report - General Procedure Date: 06/01/23 Planned Procedure: Laparoscopic appendectomy Pre-Op Diagnosis: Acute appendicitis Procedure Performed: Laparoscopic appendectomy Post Op Diagnosis: Acute appendicitis, nonperforated - Procedure Note Primary Surgeon: Dr. Tess Frost Anesthesia Provider: Lilly Herrera CRNA Anesthesia Technique: General ET tube, Local Pathology: Appendix, sent to pathology Estimated Blood Loss (mL): 3 Urine Output (mL): 83 Indications: The patient has had worsening abdominal pain for the past 24 hours, now localized to the right lower quadrant. Ultrasound in the emergency department is consistent with acute appendicitis. The patient is also noted to be 8 weeks . We discussed the risks, benefits, and alternatives of laparoscopic appendectomy including bleeding, infection, damage to surrounding structures, and the need for further surgeries, and possible miscarriage prior to surgery. The patient voiced understanding, her questions were answered, and she wished to proceed with surgery. We also discussed that prolonged appendicitis, perforated appendicitis, and its sequelae have worse outcomes than laparoscopic appendectomy. Findings: 1.Acute, nonperforated appendicitis Complications: None - Other Other Information/Narrative: The patient was brought to the operative suite and placed in the supine position. General endotrachealanesthesia was induced. A Flores catheter was placed. Preoperative antibiotics were given. ERAS protocol was not followed due to the patient's pre op nausea. A preop surgical timeout was performed. Local anesthetic was injected into the skin and subcutaneous tissues just superior to the umbilicus. An 11 blade scalpel was used to make a 5 mm transverse skin incision in this location. Next, a hemostat was used to spread the tissues down to the level of the fascia and a Patricia clamp was used to grasp and elevate the umbilical stalk. A Varess needle was used to gain access to the peritoneal space. Low flow insufflation revealed low pressures and then high flow insufflation was undertaken to 15 mmHg. Next, the Varess needle was removed and a 5 mm laparoscopic port was inserted in this location. Through this port, a 5 mm 30 degree laparoscope was inserted. On inspection of the abdomen no injury was caused on entry. Next, the patient was placed in Trendelenburg and rotated slightly to the left. 2 more ports were inserted. A 5 mm port was inserted in the suprapubic region, and a 12 mm port was inserted in the left lower quadrant. Both ports were placed by first anesthetizing the skin and subcutaneous tissues with local anesthetic, then by making an appropriate length incision with an 11 blade scalpel, and finally by placing the port under direct laparoscopic vision. Once the ports were in place, the abdomen was explored. The gallbladder, liver, and stomach appeared normal. The uterus was slightly enlarged consistent with intrauterine . Next, 2 atraumatic graspers were used to identify the area of concern. The appendix, terminal ileum, and cecum were identified. There was marked inflammation. The appendix was noted to be inflamed and adherent to the omentum, terminal ileum, and anterior abdominal wall. Gentle dissection with an atraumatic grasper and sharp dissection with a [place] harmonic scalpel was used to divide mesoappendix, taking care to stay close to the appendix. Then, the base of the appendix was divided with the stapler, using a blue load. Great care was taken to ensure that only the base of the appendix was within the jaws of the stapler and then it was fired. Hemostasis of the staple line was confirmed. Next, the appendix was placed in an Endo Catch bag and removed through the left lower quadrant port. There was no significant fluid in the pelvis. Next, a laparoscopic fascial closure device was used to place a single, interrupted 0 Vicryl suture at the left lower quadrant port. This reapproximated the fascia well. The remaining ports were removed under direct laparoscopic vision and the abdomen was deflated. Next, the skin edges were reapproximated with 4-0 Monocryl in an interrupted subcuticular fashion. A sterile dressing of skin glue was placed. The Flores catheter was removed at the end of the case. The patient was extubated in the operating room and transferred to the recovery room in stable condition. There were no complications.
[2023-06-01] MEDS ORDERED: oxyCODONE 5 MG TABLET PO PRN (18:58)
[2023-06-01] MEDS ORDERED: ACETAMINOPHEN 500 MG TABLET PO PRN (18:58)
[2023-06-01] MEDS: fentaNYL 100 MCG/2 ML VIAL IVP PRN ×2 (19:18→19:31)
[2023-06-01] MEDS ORDERED: LACTATED RINGERS 1,000 ML IV ONE (19:43)
--- NOTE | 2023-06-01 19:44 | Ultrasound Report ---
PROCEDURE: OB Limited INDICATIONS: heart tones after surgery OUTSIDE/PRIOR DATING DATA: Last menstrual period (LMP): 02/21/2023. LMP-based estimated date of delivery (OLLIE): 11/28/2023. First dating scan (date and location): 06/01/2023. Estimated date of delivery (OLLIE) from first dating scan: 12/31/2023. TECHNIQUE: Real-time scanning was performed of the fetus, with image documentation. Endovaginal scanning: Not performed COMPARISON: None. FINDINGS: heart tone of 150 bpm. IMPRESSION: heart tone of 150 bpm. Reviewed by: Joe Shelton on 06/01/2023 7:43 PM PDT Approved by: Joe Shelton on 06/01/2023 7:43 PM PDT Station ID: [id number]
--- NOTE | 2023-06-01 20:32 | ANESTHESIA POST OP EVALUATION ---
Anesthesia Post Eval - Post Anesthesia Eval Vitals: Last Vital Signs Temp 36.3 C L 06/01/23 20:23 Pulse 69 06/01/23 20:23 Resp 18 06/01/23 20:23 BP 126/68 06/01/23 20:23 Pulse Ox 100 06/01/23 20:23 O2 Flow Rate CV Function Including HR & BP: Stable Pain Control: Satisfactory Nausea & Vomiting: Negative Mental Status: Baseline Respiratory Status: Airway Patent Hydration Status: Satisfactory Anesthesia Complications: None
[2023-06-01 21:42] VITALS: BP 120/68
== END 2023-06-01 22:07 | disposition home or self-care (01) ==
LOC: ED 14:33 → SDS 17:05 → MS2 19:35 → SDS 22:07
PROVIDERS: ATTEND Surgery
PROC: 0DTJ4ZZ Resection of Appendix, Percutaneous Endoscopic Approach (ICD-10-PCS; principal; 2023-06-01 17:15)
DX: O99.611 Diseases of the digestive system complicating pregnancy, first trimester (principal); K35.80 Unspecified acute appendicitis; Z3A.09 9 weeks gestation of pregnancy
CPT/HCPCS: 36415; 44970; 76705; 76801; 76815; 80053; 81003; 83690; 84702; 85025; 86900; 86901; 99284; 99285; A9270; J0131; J7120; 81001; 87086

== ENCOUNTER 2023-06-23 08:00 | Outpatient (CLI) | payer OTHER ==
[2023-06-24 10:13] LABS: BACTERIAL VAGINOSIS DNA NEGATIVE (NEGATIVE); CANDIDA GLABRATA DNA NEGATIVE (NEGATIVE); CANDIDA GROUP DNA POSITIVE (NEGATIVE); CANDIDA KRUSEI DNA NEGATIVE (NEGATIVE); TRICHOMONAS VAGINALIS DNA NEGATIVE (NEGATIVE)
== END 2023-06-23 23:59 | disposition home or self-care (01) ==
LOC: LAB.N 08:00
PROVIDERS: ATTEND Family Medicine
DX: N76.0 Acute vaginitis (principal)
CPT/HCPCS: 81514

== ENCOUNTER 2023-06-24 08:00 | Outpatient (CLI) | payer OTHER ==
[2023-06-27 15:08] LABS: GIARDIA LAMBLIA AG EIA Negative (Negative)
== END 2023-06-24 23:59 | disposition home or self-care (01) ==
LOC: LAB.N 08:00
PROVIDERS: ATTEND Family Medicine
DX: R19.7 Diarrhea, unspecified (principal)
CPT/HCPCS: 87045; 87046; 87177; 87209; 87329; 87427; 87493

== ENCOUNTER 2023-06-24 13:56 | Emergency (ER) | payer OTHER ==
[2023-06-24 14:13] VITALS: BP 110/60; O2SAT 100
--- NOTE | 2023-06-24 15:17 | ED Physician Documentation ---
PD HPI FEMALE - Stated complaint Stated Complaint: - Chief complaint Chief Complaint: General - History obtained from History obtained from: Patient - History of Present Illness Timing - onset: How many days ago (6) Timing - duration: Days (6) Timing - details: Gradual onset, Still present Associated symptoms: Vaginal discharge, Genital sore/lesion (she has noted redness and tender of inner labia with some white discharge increasing for 6 days. Flet a bump on right upper labia and concerned about local infection. Unsu re of what to use for the discharge (she thinks is yeast) as she is 12 weeks pregnanct. No vag bleeding nor cramping.). No: Pelvic pain, Vaginal bleeding Contributing factors: (12 weeks.) PD PAST MEDICAL HISTORY - Past Medical History Past Medical History: No Cardiovascular: None Respiratory: None Neuro: None Endocrine/Autoimmune: None GI: None CUSTOM MILLER: None, Other : None HEENT: None Psych: None Musculoskeletal: None Derm: None - Past Surgical History Past Surgical History: No /CUSTOM MILLER: Other - Present Medications Home Medications: Ambulatory Orders Medication Instructions Recorded Confirmed Miconazole Nitrate [Miconazole 7] 100 mg VG DAILY 7 Days #7 supp 06/24/23 - Allergies Allergies/Adverse Reactions: Allergies Allergy/AdvReac Type Severity Reaction Status Date / Time No Known Drug Allergies Allergy Verified 06/24/23 13:59 - Social History Does the pt smoke?: No Smoking Status: Never smoker Does the pt drink ETOH?: No Does the pt have substance abuse?: No - Immunizations Immunizations are current?: Yes PD ED PE NORMAL - Vitals Vital signs reviewed: Yes - General General: Alert and oriented X 3, No acute distress, Well developed/nourished - Abdomen Abdomen: Soft, Non tender - Female Female : Tile Layer Helper present (nurse Kiesha), Other (there is redness with some general swelling inner labia both sides, with white clumpy discharge noted on external exam. Speculum exam not performed. Appears yeast like. The upper right labial tissue with some mild firmness linear feeling like blood vessel. No appea jose david of abscess/cyst. ) - Rectal Rectal: Deferred - Derm Derm: Normal color, Warm and dry Results - Vitals Vitals: Vital Signs - 24 hr 06/24/23 13:59 Temperature 36.8 C Heart Rate 85 Respiratory 16 Rate Blood Pressure 110/60 O2 Saturation 100 Oxygen O2 Source Room air PD Medical Decision Making - ED course Complexity details: considered differential (looks yeast infection with some labial inflammation and redness. No note of abscess/cyst. The area of lump she was feeling seems like a firm vein or such. Not tender. I looked at UpToDate regarding Tx for yeast in and Topical preferred, rather than oral antifungal. ), d/w patient Departure - Departure Disposition: 01 Home, Self Care Clinical Impression: Yeast vaginitis Condition: Stable Record reviewed to determine appropriate education?: Yes Instructions: ED Vaginal Infec Fungal Maria Dolores Prescriptions: Miconazole Nitrate [Miconazole 7] 100 mg VG DAILY 7 Days #7 supp Comments: I did look up to verify and currently the oral antifungals are less preferred in and recommendation is topical treatment first. I wrote her prescription for miconazole suppositories intravaginally daily for 7 days. I did look up your vaginal PCR test done from the clinic and it was positive for Maria Dolores/yeast. Negative for bacterial vaginitis. The area of firmness that you are feeling in the labia feels like a mild inflammation of the vein under the surface. No particular treatment needed for it. I sent your prescription to your preferred pharmacy. Forms: PCP List Discharge Date/Time: 06/24/23 16:09
== END 2023-06-24 16:09 | disposition home or self-care (01) ==
LOC: ED 13:56
DX: O98.811 Other maternal infectious and parasitic diseases complicating pregnancy, first trimester (principal); B37.31 Acute candidiasis of vulva and vagina; Z3A.12 12 weeks gestation of pregnancy
CPT/HCPCS: 99282; 99283

== ENCOUNTER 2023-07-27 14:29 | Outpatient (CLI) | payer OTHER ==
[2023-07-27 14:51] LABS: BASOPHILS # (AUTO) 0.1 10^3/uL (0.0-0.1); BASOPHILS % (AUTO) 0.4 %; EOSINOPHILS % (AUTO) 0.3 %; HCT - HEMATOCRIT 36.5 % (37.0-47.0); HGB - HEMOGLOBIN 11.9 g/dL (12.0-16.0); LYMPHOCYTES # (AUTO) 1.8 10^3/uL (1.5-3.5); LYMPHOCYTES % (AUTO) 15.7 %; MEAN CORPUSCULAR HEMOGLOBIN 29.5 pg (27.0-31.0); MEAN CORPUSCULAR HGB CONC 32.6 g/dL (32.0-36.0); MEAN CORPUSCULAR VOLUME 90.6 fL (81.0-99.0); MEAN PLATELET VOLUME 10.9 fL (7.9-10.8); MONOCYTES # (AUTO) 0.9 10^3/uL (0.0-1.0); MONOCYTES % (AUTO) 7.6 %; NEUTROPHILS # (AUTO) 8.7 10^3/uL (1.5-6.6); NEUTROPHILS % (AUTO) 75.7 %; PLT - PLATELET COUNT 302 10^3/uL (130-450); RED BLOOD COUNT 4.03 10^6/uL (4.20-5.40); RED CELL DISTRIBUTION WIDTH 13.3 % (12.0-15.0); WHITE BLOOD COUNT 11.6 x10^3/uL (4.8-10.8)
[2023-07-28 04:09] LABS: HBsAG SCREEN Negative (Negative)
[2023-07-28 06:10] LABS: HCV AB Non Reactive (Non Reactive); RPR Non Reactive (Non Reactive)
[2023-07-28 07:10] LABS: HIV SCREEN 4TH GENERATION Non Reactive (Non Reactive)
[2023-07-28 08:10] LABS: VARICELLA-ZOSTER AB IGG 645 index (Immune >165)
== END 2023-07-27 14:30 | disposition home or self-care (01) ==
LOC: LAB 14:29
PROVIDERS: ATTEND Obstetrics & Gynecology
DX: N89.8 Other specified noninflammatory disorders of vagina (principal)
CPT/HCPCS: 36415; 85025; 86592; 86762; 86787; 86803; 86850; 86900; 86901; 87340; 87389

== ENCOUNTER 2023-08-23 08:00 | Outpatient (CLI) | payer OTHER ==
[2023-08-23 22:03] LABS: BACTERIAL VAGINOSIS DNA NEGATIVE (NEGATIVE); CANDIDA GLABRATA DNA NEGATIVE (NEGATIVE); CANDIDA GROUP DNA POSITIVE (NEGATIVE); CANDIDA KRUSEI DNA NEGATIVE (NEGATIVE); TRICHOMONAS VAGINALIS DNA NEGATIVE (NEGATIVE)
== END 2023-08-23 23:59 | disposition home or self-care (01) ==
LOC: LAB 08:00
PROVIDERS: ATTEND Obstetrics & Gynecology
DX: N89.8 Other specified noninflammatory disorders of vagina (principal)
CPT/HCPCS: 81514

== ENCOUNTER 2023-08-23 09:01 | Outpatient (CLI) | payer OTHER ==
--- NOTE | 2023-08-23 16:54 | Ultrasound Report ---
PROCEDURE: OB Anatomy Scan INDICATIONS: SUPERVISION OF OUTSIDE/PRIOR DATING DATA: Last menstrual period (LMP): 02/21/2023. LMP-based estimated date of delivery (OLLIE): 11/28/2023. First dating scan (date and location): 06/01/2023. Estimated date of delivery (OLLIE) from first dating scan: 12/31/2023. The below data below was generated using the ultrasound OLLIE of 12/31/2023 TECHNIQUE: Real-time scanning was performed of the fetus, with image documentation and biometric measurements. COMPARISON: OB ultrasound 06/01/2023 FINDINGS: General: A single living intrauterine gestation is present. Presentation: Breech Placenta: Placental position is posterior, without previa. Amniotic fluid index: 15.1 cm, within normal limits for gestational age. heart rate: 138 beats per minute. Maternal cervical canal: 3.0 cm long; normal length is 2.5 cm or more. biometrics: Biparietal diameter: 4.5 cm 20 weeks 3 days 4th percentile Head circumference: 17.5 cm 20 weeks 0 days 8 percentile Abdominal circumference: 15.5 cm 20 weeks 4 days 31st percentile Femur length: 3.7 cm 29 weeks 5 days 66 percentile Estimated gestational age from initial scan: 21 weeks 0 days Composite gestational age from present scan: 20 weeks 2 days Estimated weight and percentile: 389 g 42nd percentile Measurement variability in biometric dating: +/- 10 days from 12-20 weeks gestation, +/- 2 weeks from 20-30 weeks gestation, +/- 3 weeks at 30 weeks gestation or later. Anatomic survey: Neuro: Ventricles are normal at less than 10 mm. Cisterna magna is normal at 3-11 mm. Cerebellum i s normal in size and morphology. Nuchal skin fold: Normal at less than 6 mm between 14 and 20 weeks gestational age. Face: Nose and lips, facial profile are normal. Spine: No evidence for spina bifida. Heart: 4-chambered heart is present, with normal ventricular outflow tracts. Diaphragm: Diaphragm is intact. Stomach: Left-sided stomach is present. Kidneys: No hydronephrosis. Normal is less than 5 mm in 2nd trimester, less than 7 mm in 3rd trimester. Cord: 3 vessel cord has orthotopic insertion. Bladder: Normal in size. Extremities: All 4 extremities are visualized. IMPRESSION: Single live intrauterine with ultrasound gestational age today of 20 weeks 2 days. Anatomy is within normal limits. growth demonstrates less than 10th percentile for both the BPD and head circumference. Recommen d close interval imaging follow-up as asymmetric growth restriction cannot be excluded. Reviewed by: Kristy Garay MD on 08/23/2023 4:53 PM PST Approved by: Kristy Garay MD on 08/23/2023 4:53 PM PST Station ID: [id number]
== END 2023-08-23 09:02 | disposition home or self-care (01) ==
LOC: DI 09:01
PROVIDERS: ATTEND Obstetrics & Gynecology
DX: Z34.02 Encounter for supervision of normal first pregnancy, second trimester (principal)

== ENCOUNTER 2023-09-20 13:38 | Outpatient (CLI) | payer OTHER ==
[2023-09-20 14:53] LABS: HCT - HEMATOCRIT 37.4 % (37.0-47.0); HGB - HEMOGLOBIN 12.3 g/dL (12.0-16.0); MEAN CORPUSCULAR HEMOGLOBIN 30.2 pg (27.0-31.0); MEAN CORPUSCULAR HGB CONC 32.9 g/dL (32.0-36.0); MEAN CORPUSCULAR VOLUME 91.9 fL (81.0-99.0); MEAN PLATELET VOLUME 10.6 fL (7.9-10.8); RED BLOOD COUNT 4.07 10^6/uL (4.20-5.40); RED CELL DISTRIBUTION WIDTH 12.9 % (12.0-15.0); WHITE BLOOD COUNT 9.5 x10^3/uL (4.8-10.8)
== END 2023-09-20 13:39 | disposition home or self-care (01) ==
LOC: LAB 13:38
PROVIDERS: ATTEND Obstetrics & Gynecology
DX: Z34.00 Encounter for supervision of normal first pregnancy, unspecified trimester (principal); Z36.89 Encounter for other specified antenatal screening
CPT/HCPCS: 36415; 82950; 85027

== ENCOUNTER 2023-10-04 15:27 | Outpatient (CLI) | payer OTHER ==
[2023-10-04 15:52] VITALS: BP 100/63
[2023-10-04 15:55] LABS: BASOPHILS % (AUTO) 0.3 %; EOSINOPHILS % (AUTO) 0.4 %; HCT - HEMATOCRIT 36.8 % (37.0-47.0); HGB - HEMOGLOBIN 11.9 g/dL (12.0-16.0); MEAN CORPUSCULAR HEMOGLOBIN 29.6 pg (27.0-31.0); MEAN CORPUSCULAR HGB CONC 32.3 g/dL (32.0-36.0); MEAN CORPUSCULAR VOLUME 91.5 fL (81.0-99.0); MEAN PLATELET VOLUME 10.6 fL (7.9-10.8); MONOCYTES # (AUTO) 0.6 10^3/uL (0.0-1.0); MONOCYTES % (AUTO) 6.6 %; NEUTROPHILS # (AUTO) 6.5 10^3/uL (1.5-6.6); NEUTROPHILS % (AUTO) 70.3 %; PLT - PLATELET COUNT 280 10^3/uL (130-450); RED BLOOD COUNT 4.02 10^6/uL (4.20-5.40); RED CELL DISTRIBUTION WIDTH 13.1 % (12.0-15.0); WHITE BLOOD COUNT 9.3 x10^3/uL (4.8-10.8)
--- NOTE | 2023-10-04 16:05 | PROVIDER PROGRESS NOTE ---
- HPI Current : Vital Signs Temperature 98.0 F 10/04/23 15:38 Heart Rate 81 10/04/23 15:38 Respiratory Rate 16 10/04/23 15:38 Blood Pressure 100/63 10/04/23 15:38 Temperature 98.0 F 10/04/23 15:38 Heart Rate 81 10/04/23 15:38 Respiratory Rate 16 10/04/23 15:38 Blood Pressure 100/63 10/04/23 15:38 O2 Saturation If not protocol: Oxygen Flow, liters/minute Vital Signs Temperature 98.0 F 10/04/23 15:38 Heart Rate 81 10/04/23 15:38 Respiratory Rate 16 10/04/23 15:38 Blood Pressure 100/63 10/04/23 15:38 - Procedures OB Procedure Performed: NST - Plan Plan: Patient is a 23-year-old G1, P0 at 27 weeks gestation feeling unwell with a headache and abdominal pain. She had called triage earlier and was advised take Tylenol. She took 500 mg and headache is improved but not gone away. Her belly pain has since subsided. She had an right lower quadrant. Given additional 500 mg of Tylenol on arrival and she is feeling better. No leaking, no vaginal bleeding. No right upper quadrant pain or changes in vision Physical Exam Constitutional: alert, no acute distress, well hydrated, well developed, well nourished, appropriate dress. Cardiovascular: Regular rate and rhythm. Respiratory: no respiratory distress. Abdomen: nondistended, nontender, no guarding. Psych: affect and mood appropriate, normal interaction, good eye contact. FHT: 140 beats per baseline, moderate variability, accelerations present, no decelerations. Reactive NST [place]: Quiescent Assessment and plan Headache -Labs not concerning for preeclampsia. She does have an elevated blood pressure, with some proteinuria but no other lab abnormalities. -Headache much improved after addition of Tylenol and rest. No additional abdominal pain. Discussed management and rest. -Follow-up if she has worsening headache, vision change, right upper quadrant pain. Isolated proteinuria continue to monitor throughout .
[2023-10-04 16:13] LABS: ALBUMIN 3.4 g/dL (3.2-5.5); ALBUMIN/GLOBULIN RATIO 1.2 (1.0-2.2); BILIRUBIN,TOTAL 0.3 mg/dL (0.2-1.0); CALCIUM 9.2 mg/dL (8.5-10.3); CREATININE 0.5 mg/dL (0.6-1.3); POTASSIUM 3.7 mmol/L (3.5-4.5); TOTAL PROTEIN 6.2 g/dL (6.4-8.9)
[2023-10-04] MEDS: ACETAMINOPHEN 500 MG TABLET PO PRN (16:43)
[2023-10-04 17:11] LABS: CREATININE,URINE 72.3 mg/dL; PROTEIN/CREATININE RATIO,URINE 0.4 (<=0.2)
== END 2023-10-04 17:05 | disposition home or self-care (01) ==
LOC: WFO 15:27 → FBP 15:28 → WFO 17:05
PROVIDERS: ATTEND Obstetrics & Gynecology
DX: O99.891 Other specified diseases and conditions complicating pregnancy (principal); R51.9 Headache, unspecified; O12.12 Gestational proteinuria, second trimester; R10.31 Right lower quadrant pain; R03.0 Elevated blood-pressure reading, without diagnosis of hypertension; Z3A.27 27 weeks gestation of pregnancy
CPT/HCPCS: 36415; 80053; 82570; 84156; 85025; 99214; A9270

== ENCOUNTER 2023-10-06 08:11 | Outpatient (CLI) | payer OTHER ==
--- NOTE | 2023-10-09 11:47 | Ultrasound Report ---
PROCEDURE: OB Follow up INDICATIONS: POOR GROWTH OUTSIDE/PRIOR DATING DATA: Last menstrual period (LMP): 02/21/2023. LMP-based estimated date of delivery (OLLIE): 11/28/2023. First dating scan (date and location): 06/01/2023. Estimated date of delivery (OLLIE) from first dating scan: 12/31/2023. The below data below was generated using the ultrasound OLLIE of 12/31/2023 TECHNIQUE: Real-time scanning was performed of the fetus, with image documentation and biometric measurements. Endovaginal scanning: Not performed. COMPARISON: OB ultrasound 08/23/2023 FINDINGS: General: A single living intrauterine gestation is present. Presentation: Vertex Placenta: Placental position is posterior, without previa. Amniotic fluid index: 14.5 cm, within normal limits for gestational age. heart rate: 129 beats per minute. Maternal cervical canal: 2.9 cm long; normal length is 2.5 cm or more. biometrics: Biparietal diameter: 6.7 cm, 26 weeks 6 days, 15th percentile Head circumference: 25.0 cm, 27 weeks 1 day, 10th percentile Abdominal circumference: 22.4 cm, 26 weeks 6 days, 17th percentile Femur length: 5.2 cm, 27 weeks 6 days, 38th percentile Estimated gestational age from initial scan: 27 weeks 5 days Composite gestational age from present scan: 27 weeks 1 day Estimated weight and percentile: 1040 g, 20th percentile Measurement variability in biometric dating: +/- 10 days from 12-20 weeks gestation, +/- 2 weeks from 20-30 weeks gestation, +/- 3 weeks at 30 weeks gestation or more. Other: Not applicable. IMPRESSION: 1.Single live intrauterine . 2.Estimated weight is at the 20th percentile for gestational age. 3.Head circumference is at the 10th percentile for gestational age. Reviewed by: Storm Meng MD on 10/09/2023 11:46 AM PST Approved by: Storm Meng MD on 10/09/2023 11:46 AM PST Station ID: [id number]
== END 2023-10-06 08:12 | disposition home or self-care (01) ==
LOC: DI 08:11
PROVIDERS: ATTEND Obstetrics & Gynecology
DX: O36.5920 Maternal care for other known or suspected poor fetal growth, second trimester, not applicable or unspecified (principal); Z3A.27 27 weeks gestation of pregnancy

== ENCOUNTER 2023-10-25 08:00 | Outpatient (CLI) | payer OTHER ==
[2023-10-25 23:37] LABS: BACTERIAL VAGINOSIS DNA NEGATIVE (NEGATIVE); CANDIDA GLABRATA DNA NEGATIVE (NEGATIVE); CANDIDA GROUP DNA POSITIVE (NEGATIVE); CANDIDA KRUSEI DNA NEGATIVE (NEGATIVE); TRICHOMONAS VAGINALIS DNA NEGATIVE (NEGATIVE)
== END 2023-10-25 23:59 | disposition home or self-care (01) ==
LOC: LAB.WC 08:00
PROVIDERS: ATTEND Obstetrics & Gynecology
DX: N89.8 Other specified noninflammatory disorders of vagina (principal)
CPT/HCPCS: 81514

== ENCOUNTER 2023-10-26 16:58 | Outpatient (CLI) | payer OTHER ==
[2023-10-26 20:41] LABS: BILIRUBIN,URINE NEGATIVE (NEGATIVE); GLUCOSE, URINE (UA) NEGATIVE (NEGATIVE); KETONES,URINE (UA) NEGATIVE (NEGATIVE); LEUKOCYTE ESTERASE, URINE LARGE (NEGATIVE); NITRITE,URINE NEGATIVE (NEGATIVE); OCCULT BLOOD,URINE NEGATIVE (NEGATIVE); PH,URINE 6.5 PH (5.0-7.5); PROTEIN,URINE NEGATIVE (NEGATIVE); UROBILINOGEN,URINE 0.2 (NORMAL) E.U./dL (NORMAL)
[2023-10-26 20:57] LABS: CLARITY,URINE CLEAR (CLEAR); RBC,URINE None Seen /HPF (0-5); SQUAMOUS EPITHELIAL CELL,UR MOD Squamous (<= Few)
[2023-10-26 20:58] LABS: AMORPHOUS SEDIMENT,UR Few /LPF; BACTERIA,URINE None Seen /HPF (None Seen); EPITHELIAL CELLS,UR RARE Transitional /HPF (<= Few)
== END 2023-10-26 16:59 | disposition home or self-care (01) ==
LOC: LAB.N 16:58
PROVIDERS: ATTEND Obstetrics & Gynecology
DX: O99.820 Streptococcus B carrier state complicating pregnancy (principal)
CPT/HCPCS: 81001; 87086

== ENCOUNTER 2023-11-08 13:48 | Outpatient (CLI) | payer OTHER ==
--- NOTE | 2023-11-08 16:09 | Ultrasound Report ---
PROCEDURE: OB Follow up INDICATIONS: POOR GROWTH OUTSIDE/PRIOR DATING DATA: Last menstrual period (LMP): 03/03/2023. LMP-based estimated date of delivery (OLLIE): 11/28/2023. First dating scan (date and location):06/01/2023 . Estimated date of delivery (OLLIE) from first dating scan: 12/31/2023. The below data below was generated using the ultrasound OLLIE of 12/31/2023 TECHNIQUE: Real-time scanning was performed of the fetus, with image documentation and biometric measurements. Endovaginal scanning: Not performed. COMPARISON: None. FINDINGS: General: A single living intrauterine gestation is present. Presentation: Vertex Placenta: Placental position is posterior, without previa. Amniotic fluid index: 15.2 cm, within normal limits for gestational age. heart rate: 152 beats per minute. Maternal cervical canal: 3.8 cm long; normal length is 2.5 cm or more. biometrics: Biparietal diameter: 7.95 cm, 31 weeks 6 days, 28 percentile Head circumference: 28.3 cm, 31 weeks 1 day, 1.8 percentile Abdominal circumference: 27.3 cm, 31 weeks 3 days, 20 percentile Femur length: 6.11 cm, 31 weeks 5 days, 20 percentile Estimated gestational age from initial scan: 32 weeks 4 days Composite gestational age from present scan: 31 weeks 4 days Estimated weight and percentile: 1777.7 g, 15th percentile Measurement variability in biometric dating: +/- 10 days from 12-20 weeks gestation, +/- 2 weeks from 20-30 weeks gestation, +/- 3 weeks at 30 weeks gestation or more. Other: Not applicable. IMPRESSION: Single living intrauterine at 32 weeks 4 days, OLLIE of 12/31/2023. Estimated weight of 1777 g, 15th percentile. Head circumference is less than 2nd percentile. Reviewed by: Joe Shelton MD on 11/08/2023 4:08 PM PDT Approved by: Joe Shelton MD on 11/08/2023 4:08 PM PDT Station ID: [id number]
== END 2023-11-08 13:49 | disposition home or self-care (01) ==
LOC: DI 13:48
PROVIDERS: ATTEND Obstetrics & Gynecology
DX: O36.5930 Maternal care for other known or suspected poor fetal growth, third trimester, not applicable or unspecified (principal); Z3A.31 31 weeks gestation of pregnancy

== ENCOUNTER 2023-12-11 12:39 | Outpatient (CLI) | payer OTHER ==
--- NOTE | 2023-12-11 13:59 | Ultrasound Report ---
PROCEDURE: OB Follow up INDICATIONS: GROWTH ABN OUTSIDE/PRIOR DATING DATA: Last menstrual period (LMP): 02/21/2023. LMP-based estimated date of delivery (OLLIE): 11/28/2023. First dating scan (date and location): 06/01/2023. Estimated date of delivery (OLLIE) from first dating scan: 12/31/2023 (working OLLIE). TECHNIQUE: Real-time scanning was performed of the fetus, with image documentation and biometric measurements. COMPARISON: 11/08/2023 FINDINGS: General: A single living intrauterine gestation is present. Presentation: Vertex Placenta: Placental position is posterior, without previa. Amniotic fluid index: 14.5 cm, within normal limits for gestational age. heart rate: 147 beats per minute. Maternal cervical canal: 3.5 cm long; normal length is 2.5 cm or more. biometrics: Biparietal diameter: 8.2 cm, 33 weeks, less than the 1st percentile Head circumference: 30.5 cm, 34 weeks, less than the 1st percentile Abdominal circumference: 31.9 cm, 35 weeks and 6 days, 26.7 percentile Femur length: 7.03 cm, 36 weeks, 22.1 percentile Estimated gestational age from initial scan: 37 weeks and 1 day Composite gestational age from present scan: 34 weeks and 5 days Estimated weight and percentile: 2661 g, 15.3 percentile Measurement variability in biometric dating: +/- 10 days from 12-20 weeks gestation, +/- 2 weeks from 20-30 weeks gestation, +/- 3 weeks at 30 weeks gestation or more. Other: Not applicable. IMPRESSION: Abnormal biometrics, with BPD and head circumference less than the 1st percentile. This is worse than prior imaging. Overall EFW is at the lower limit of normal, at the 15th percentile. Normal HESHAM. Reviewed by: Isael Palma MD on 12/11/2023 1:58 PM PDT Approved by: Isael Palma MD on 12/11/2023 1:58 PM PDT Station ID: [id number]
== END 2023-12-11 12:40 | disposition home or self-care (01) ==
LOC: DI 12:39
PROVIDERS: ATTEND Obstetrics & Gynecology
DX: O36.5993 Maternal care for other known or suspected poor fetal growth, unspecified trimester, fetus 3 (principal); Z3A.34 34 weeks gestation of pregnancy

== ENCOUNTER 2023-12-13 11:36 | Outpatient (CLI) | payer OTHER ==
[2023-12-13 12:07] VITALS: BP 111/73
[2023-12-13 14:23] VITALS: O2SAT 99
--- NOTE | 2023-12-14 17:19 | PROVIDER PROGRESS NOTE ---
- HPI Chief Complaint: Decreased movement Current : Current EDU 01/03/24 Gestation 37 Weeks and 0 Days 1 Para 0 Vital Signs Temperature 98.4 F 12/13/23 11:49 Heart Rate 84 12/13/23 11:49 Respiratory Rate 16 12/13/23 11:49 Blood Pressure 111/73 12/13/23 11:49 O2 Saturation 99 12/13/23 11:49 Temperature 98.4 F 12/13/23 12:50 Heart Rate 84 12/13/23 12:50 Respiratory Rate 16 12/13/23 12:50 Blood Pressure 111/73 12/13/23 12:50 O2 Saturation 99 12/13/23 11:49 If not protocol: Oxygen Flow, liters/minute - Procedures OB Procedure Performed: NST Diagnosis/Indication for NST: Decreased movement NST Procedure: NST Procedure Start Date 12/13/23 Start Time 11:44 Stop Time 12:35 Vibroacoustic Stimulation Used No Patient States Movement Yes Service Date of procedure: 12/13/23 Procedure Details: Reactive for of 32 weeks gestation or more. NST tracing contains at least two heart rate accelerations that are at least 15 beats per minute above the baseline rate and lasting at least 15 seconds from onset to return to baseline within a twenty minute period. Findings: baby moving well on monitor. patient feeling it some. very reassuring and patient is comfortable with this. - Plan Plan: discharge home. care as scheduled.
== END 2023-12-13 13:10 | disposition home or self-care (01) ==
LOC: WFO 11:36 → FBP 11:37 → WFO 13:10
PROVIDERS: ATTEND Obstetrics & Gynecology
DX: O36.8130 Decreased fetal movements, third trimester, not applicable or unspecified (principal); Z3A.37 37 weeks gestation of pregnancy
CPT/HCPCS: 59025; 99213

== ENCOUNTER 2023-12-18 11:37 | Outpatient (CLI) | payer OTHER ==
[2023-12-18 11:51] VITALS: BP 110/74
--- NOTE | 2023-12-18 12:34 | PROCEDURE REPORT ---
- HPI Current EDU 01/03/24 Gestation 37 Weeks and 5 Days 1 Para 0 Vital Signs Temperature 99.0 F 12/18/23 11:48 Heart Rate 95 12/18/23 11:48 Respiratory Rate 16 12/18/23 11:48 Blood Pressure 110/74 12/18/23 11:48 Temperature 99.0 F 12/18/23 11:48 Heart Rate 95 12/18/23 11:48 Respiratory Rate 16 12/18/23 11:48 Blood Pressure 110/74 12/18/23 11:48 O2 Saturation If not protocol: Oxygen Flow, liters/minute - NST Procedure NST Procedure Start Date 12/18/23 Start Time 11:47 Stop Time 12:30 Vibroacoustic Stimulation Used No Patient States Movement Yes - Results and Plan Plan: Patient is a 23-year-old G1, P0 at 37 weeks 5 days gestation here for NST. NST Performed 12/18/2023 NST Read 12/18/2023 FHT: 135 bpm baseline, moderate variability, accelerations present, no decelerations. Reactive NST [place]: Irritable Diagnosis 37 weeks gestation IUGR Continue with scheduled OB care
--- NOTE | 2023-12-18 13:58 | Labor Flowsheet ---
Labor Flowsheet Datetime Report Generated by CPN: 12/18/2023 13:58 Datetime: 12/18/2023 13:40 VITAL SIGNS NBP Sys/Anju/Mean (mmHg): 116 : 61 : 72 Pulse: 87
--- NOTE | 2023-12-18 16:54 | Ultrasound Report ---
PROCEDURE: OB Biophysical Profile INDICATIONS: GROWTH RETARDATION/nst OUTSIDE/PRIOR DATING DATA: Last menstrual period (LMP): 02/21/2023. LMP-based estimated date of delivery (OLLIE): 11/28/2023. First dating scan (date and location): 06/01/2023. Estimated date of delivery (OLLIE) from first dating scan: 12/31/2023. The below data below was generated using the ultrasound OLLIE of 12/31/2023 TECHNIQUE: Real-time scanning was performed of the fetus, with image documentation. Biophysical pro file was also obtained. Endovaginal scanning: Not performed. COMPARISON: 12/11/2023, 11/08/2023, 10/06/2023. FINDINGS: General: A single living intrauterine gestation is present. Presentation: Vertex Placenta: Placental position is posterior, without previa. Amniotic fluid index: 13.1 cm, 51 percentile for gestational age. heart rate: 147 beats per minute. Maternal cervical canal: 3.6 cm long; normal length is 2.5 cm or more. Biophysical profile: Tone: 2 points. Movement: 2 points. Respiration: 2 points. Largest pocket of fluid: 2 points. Umbilical artery Doppler: Not requested IMPRESSION: Single living intrauterine at 38 weeks 1 day, OLLIE of 12/31/2023. BPP 8 of 8. Reviewed by: Joe Shelton MD on 12/18/2023 4:20 PM PDT Approved by: Joe Shelton MD on 12/18/2023 4:20 PM PDT Station ID: [id number]
== END 2023-12-18 12:45 | disposition home or self-care (01) ==
LOC: DI 11:37 → FBP 11:37 → DI 12:45
PROVIDERS: ATTEND Obstetrics & Gynecology
DX: O36.5930 Maternal care for other known or suspected poor fetal growth, third trimester, not applicable or unspecified (principal); Z3A.38 38 weeks gestation of pregnancy
CPT/HCPCS: 59025

== ENCOUNTER 2023-12-21 14:00 | Outpatient (CLI) | payer OTHER ==
[2023-12-21 14:26] VITALS: BP 103/67; O2SAT 97
--- NOTE | 2023-12-22 08:50 | PROCEDURE REPORT ---
- HPI Diagnosis/Indication for NST: Intrauterine growth restriction Current EDU 01/03/24 Gestation 38 Weeks and 1 Days 1 Para 0 Vital Signs Temperature 97.9 F 12/21/23 14:13 Heart Rate 103 H 12/21/23 14:13 Respiratory Rate 16 12/21/23 14:13 Blood Pressure 103/67 12/21/23 14:13 O2 Saturation 97 12/21/23 14:13 Temperature 97.9 F 12/21/23 14:13 Heart Rate 103 H 12/21/23 14:13 Respiratory Rate 16 12/21/23 14:13 Blood Pressure 103/67 12/21/23 14:13 O2 Saturation 97 12/21/23 14:13 If not protocol: Oxygen Flow, liters/minute - NST Procedure NST Procedure Start Date 12/21/23 Start Time 14:08 Stop Time 14:39 Vibroacoustic Stimulation Used No Patient States Movement Yes - Results and Plan Findings/Impression: Reactive for of 32 weeks gestation or more. NST tracing contains at least two heart rate accelerations that are at least 15 beats per minute above the baseline rate and lasting at least 15 seconds from onset to return to baseline within a twenty minute period. Plan: induction on Monday.
== END 2023-12-21 14:45 | disposition home or self-care (01) ==
LOC: WFO 14:00 → FBP 14:01 → WFO 14:45
PROVIDERS: ATTEND Obstetrics & Gynecology
DX: O36.5930 Maternal care for other known or suspected poor fetal growth, third trimester, not applicable or unspecified (principal); Z3A.38 38 weeks gestation of pregnancy
CPT/HCPCS: 59025

== ENCOUNTER 2023-12-22 19:10 | Inpatient (IN) | payer OTHER ==
[2023-12-22] MEDS ORDERED: CARBOPROST TROMETHAMINE 250 MCG/ML VIAL IM PRN (19:57)
[2023-12-22] MEDS ORDERED: hydrALAZINE INJ 20 MG/ML VIAL IVP PRN ×2 (19:57)
[2023-12-22] MEDS ORDERED: TRANEXAMIC ACID IN NACL 1,000 MG/100 ML BAG IV PRN (19:57)
[2023-12-22] MEDS ORDERED: fentaNYL 100 MCG/2 ML VIAL IVP PRN (19:57)
[2023-12-22] MEDS ORDERED: NIFEdipine 10 MG CAPSULE PO PRN (19:57)
[2023-12-22] MEDS ORDERED: miSOPROStoL 200 MCG TABLET PR PRN (19:57)
[2023-12-22] MEDS ORDERED: lidocaine 1% 20 ML MDV ID PRN (19:57)
[2023-12-22] MEDS ORDERED: OXYTOCIN 10 UNIT/ML VIAL IM PRN (19:57)
[2023-12-22] MEDS ORDERED: miSOPROStoL 200 MCG TABLET BC PRN (19:57)
[2023-12-22] MEDS ORDERED: METHYLERGONOVINE 0.2 MG/ML VIAL IM PRN (19:57)
[2023-12-22] MEDS ORDERED: TERBUTALINE 1 MG/ML VIAL SUBQ PRN (19:57)
[2023-12-22] MEDS ORDERED: LABETALOL 20 MG/4 ML SYRINGE IVP PRN ×3 (19:57)
[2023-12-22 20:14] LABS: BASOPHILS % (AUTO) 0.4 %; EOSINOPHILS # (AUTO) 0.1 10^3/uL (0.0-0.7); EOSINOPHILS % (AUTO) 0.9 %; HCT - HEMATOCRIT 36.6 % (37.0-47.0); HGB - HEMOGLOBIN 12.1 g/dL (12.0-16.0); LYMPHOCYTES # (AUTO) 2.7 10^3/uL (1.5-3.5); LYMPHOCYTES % (AUTO) 31.7 %; MEAN CORPUSCULAR HEMOGLOBIN 29.7 pg (27.0-31.0); MEAN CORPUSCULAR HGB CONC 33.1 g/dL (32.0-36.0); MEAN CORPUSCULAR VOLUME 89.9 fL (81.0-99.0); MEAN PLATELET VOLUME 11.7 fL (7.9-10.8); MONOCYTES # (AUTO) 0.8 10^3/uL (0.0-1.0); MONOCYTES % (AUTO) 9.4 %; NEUTROPHILS # (AUTO) 4.9 10^3/uL (1.5-6.6); NEUTROPHILS % (AUTO) 57.2 %; PLT - PLATELET COUNT 262 10^3/uL (130-450); RED BLOOD COUNT 4.07 10^6/uL (4.20-5.40); RED CELL DISTRIBUTION WIDTH 13.4 % (12.0-15.0); WHITE BLOOD COUNT 8.5 x10^3/uL (4.8-10.8)
--- NOTE | 2023-12-22 21:10 | HISTORY & PHYSICAL EXAMINATION ---
Admit History - Visit Reason Visit Reason: Other (Nery is a 23 yo at 38w2d who presents at induction of labor with concern for asymmetric IUGR. Last growth US on 12/10 with EFW 15%tile (BPD and HC 1st%tile)) - : 1 Parity: 0 Care: positive: [facility] Risk/History: positive: Other (1. Laparoscopic appendectomyin early 2. dated by U/S - inconsistent with LMP 3. asymmetric IUGR (small head, normal abd, long legs) on 20w cherry sono at [facility]. MFM referral placed but MFM suggested repeating ultrasound prior to referral. -28-week EFW 20th percentile 1040 g) Smoking Status: Never smoker - Other Maternal History Other Maternal History: Pre- BMI: 29.3 Blood type: A+ Antibody: negative CBC: PLT 302 HCT 36.5 HGB 11.9 RUB: immune VZV: immune HBsAg: negative HepC: NR RPR/AB-EIA: NR HIV: NR PAP: 2021 normal per pt GC/CT:neg HSV:denies in self and partner Genetic testing: declines Covid: declines booster Flu: had this season FAS: 08/23/2023 Placenta: posterior without previa Cord: 3VC HESHAM: 15.1 WNL EFW: 389g 42% 50gm OGCT: 66 TDAP: 10/11 Breast Pump: 10/11 3rd trimester CBC: 11.9/36.8%/280 GBS:pos in urine 05/08/23; - HPI Diagnosis/Indication for NST: Other (IOL) Current EDU 12/29/23 Gestation 39 Weeks and 0 Days 1 Vital Signs Temperature 98.1 F 12/22/23 20:01 Temperature 98.1 F 12/22/23 20:01 Heart Rate Respiratory Rate Blood Pressure O2 Saturation If not protocol: Oxygen Flow, liters/minute - NST Procedure NST Procedure Start Time 14:08 Stop Time 14:39 130s bpm baseline, + accel, - decel, mod variability Friona quiet - Results and Plan Findings/Impression: Reactive, Cat 1 Meds/Allgy - Home Medications Home Medications: Ambulatory Orders Medication Instructions Recorded Confirmed Miconazole Nitrate [Miconazole 7] 100 mg VG DAILY 7 Days #7 supp 06/24/23 - Allergies Allergies/Adverse Reactions: Allergies Allergy/AdvReac Type Severity Reaction Status Date / Time No Known Drug Allergies Allergy Verified 06/24/23 13:59 Review of Systems - Other Findings Other Findings: Denies ctx, lof, vb. + FM. Feeling well today. Physical - Abdominal Exam Vital Signs: Temp Pulse Resp BP Pulse Ox O2 Flow Rate 98.1 F 12/22/23 20:01 - Presentation Presentation: positive: Vertex (per bedside ultrasound) - Vaginal Exam Membranes: positive: Membranes intact Dilation (in cm): Closed - Speculum Exam Speculum Exam Performed: positive: No Plan for Labor - Plan For Labor I expect patient to be DC'd or transferred within 96 hours.: Yes Plan for Labor: Plan to proceed with cervical ripening with misoprostol. Pain management per patient request. Will start GBS prophylaxis for h/o GBS bacteruria.
[2023-12-22] MEDS: miSOPROStoL 100 MCG TABLET VG SCH (21:48)
[2023-12-23] MEDS ORDERED: AMPICILLIN 1 GM in SODIUM CHLORIDE 0.9% MINIBAG 100 ML IV SCH
[2023-12-23] MEDS ORDERED: miSOPROStoL 100 MCG TABLET VG SCH ×2 (02:00→08:00)
[2023-12-23] MEDS: miSOPROStoL 200 MCG TABLET VG SCH (02:00)
[2023-12-23] MEDS: miSOPROStoL 100 MCG TABLET VG SCH (08:48)
[2023-12-23] MEDS: ACETAMINOPHEN 500 MG TABLET PO PRN (10:03)
--- NOTE | 2023-12-23 11:39 | PROVIDER PROGRESS NOTE ---
Labor Progress Note - Uterine Monitoring Uterine Monitoring Mode: positive: External toco Contraction Frequency (min/apart): irregular, at times q 1-3 min and then will space out - Monitoring Monitor Mode: positive: External ultrasound Heart Rate Baseline: 130s bpm baseline Heart Rate Variability: positive: Moderate (6-25 bmp) Accelerations: positive: Present, 15x15 Decelerations: positive: None Strip Review: positive: Category I - Labor Progress Note Labor Progress Note/Additional Text: S: Feeling some cramping with contractions. O: BPs reviewed, normal range. A/P: IOL for asymmetric IUGR GBS pos, urine - Continue with misoprostol for now, next dose due around 1PM and she would like SVE at that time. - Start ampicillin now.
--- NOTE | 2023-12-23 12:18 | PHARMACY PROGRESS NOTE ---
- Best Possible Medication History Admit Date and Time: 12/22/231957 Processed by: Pharmacy Medications reviewed in ED?: No Patient Interview: Pt unable to participate As the person ultimately responsible for medication therapy, providers are able to order a medication from an existing home medication list in [facility] via the "Reconcile Routine" prior to Confirmation of that medication by technical support technician. Such practice is discouraged except when the physician, in their clinical judgment, deems that a medical need exists for a medication without regard to previous use.
[2023-12-23] MEDS ORDERED: AMPICILLIN 2 GM in SODIUM CHLORIDE 0.9% MINIBAG 100 ML IV ONE (13:00)
[2023-12-23] MEDS: AMPICILLIN 2 GM in SODIUM CHLORIDE 0.9% MINIBAG 100 ML IV ONE (13:10)
[2023-12-23] MEDS: LACTATED RINGERS 1,000 ML IV PRN (13:13)
[2023-12-23 13:54] LABS: RUPTURE OF MEMBRANES PLUS POSITIVE (NEGATIVE)
[2023-12-23] MEDS ORDERED: ROPIVACAINE 0.2% 200 MG/100 ML BAG EP ONE (14:36)
[2023-12-23] MEDS ORDERED: NALBUPHINE 10 MG/ML AMP IVP PRN ×2 (15:06→16:08)
[2023-12-23] MEDS ORDERED: METOCLOPRAMIDE 10 MG/2 ML VIAL IVP PRN ×2 (15:06→16:08)
[2023-12-23] MEDS ORDERED: NALOXONE 0.4 MG/ML VIAL IVP PRN ×2 (15:06→16:08)
[2023-12-23] MEDS ORDERED: diphenhydrAMINE INJ 50 MG/ML VIAL IVP PRN ×2 (15:06→16:08)
[2023-12-23] MEDS ORDERED: ePHEDrine 50 MG/ML VIAL IVP PRN (16:08)
[2023-12-23] MEDS ORDERED: ONDANSETRON 4 MG/2 ML VIAL IVP PRN (16:08)
--- NOTE | 2023-12-23 16:08 | ANESTHESIA ---
Pre-Anesthesia VS, & Labs - Diagnosis labor pain - Procedure epidural for Vital Signs: Temp Pulse Resp BP Pulse Ox O2 Flow Rate 36.7 C 12/22/23 20:01 Height: 5 ft 2 in Weight (kg): 84.822 kg Body Mass Index: 34.2 BMI Classification: Obese - NPO Last Fluid Intake: t/o day Last Food Intake: lunch - Is Patient ?: Yes - Lab Results Current Lab Results: Laboratory Tests 12/22/23 19:45: WBC 8.5, RBC 4.07 L, Hgb 12.1, Hct 36.6 L, MCV 89.9, MCH 29.7, MCHC 33.1, RDW 13.4, Plt Count 262, MPV 11.7 H, Neut # (Auto) 4.9, Lymph # (Auto) 2.7, [place] # (Auto) 0.8, Eos # (Auto) 0.1, Baso # (Auto) 0.0, Absolute Nucleated RBC 0.00, Nucleated RBC % 0.0 12/22/23 19:45: Blood Type A POSITIVE, Antibody Screen NEGATIVE Fish Bones: 12/22/23 19:45 Home Medications and Allergies Home Medications: Ambulatory Orders Home Medications Unobtainable [HOME MEDICATIONS UNOBTAINABLE] 12/23/23 Active Medications Acetaminophen (Acetaminophen 500 Mg Tablet) 1,000 mg PO Q8HR PRN PRN Reason: Pain or Fever > 38C (100.4F) Last Admin: 12/23/23 10:03 Dose: 1,000 mg Carboprost Tromethamine (Carboprost Tromethamine 250 Mcg/Ml Vial) 250 mcg IM .ONCE PRN PRN Reason: Hemorrhage Diphenhydramine HCl (Diphenhydramine Inj 50 Mg/Ml Vial) 12.5 - 25 mg IVP Q6HR PRN PRN Reason: ITCHING Ephedrine Sulfate (Ephedrine 50 Mg/Ml Vial) 5 mg IVP Q5M PRN PRN Reason: For SBP<100;give until SBP>100 Fentanyl (Fentanyl 100 Mcg/2 Ml Vial) 50 mcg IVP Q1H PRN PRN Reason: Severe Pain (score 7-10) Hydralazine HCl (Hydralazine Inj 20 Mg/Ml Vial) 5 - 10 mg IVP Q20M PRN; Protocol PRN Reason: SBP> or= 160 OR DBP> or= 110 Hydralazine HCl (Hydralazine Inj 20 Mg/Ml Vial) 10 mg IVP .ONCE PRN; Protocol PRN Reason: SBP> or= 160 OR DBP> or= 110 Lactated Ringer's (Lr) 500 mls @ 999 mls/hr IV PRN PRN PRN Reason: NEEDED PER PROVIDER ORDERS Last Admin: 12/23/23 13:13 Dose: 125 mls/hr Oxytocin/Sodium Chloride (Pitocin/Sodium Chloride) 500 mls @ 999 mls/hr IV PRN PRN; Protocol PRN Reason: POST- HEMORR PREVENTION Tranexamic Acid (Tranexamic 1,000 Mg/100ml-Nacl) 1,000 mg in 100 mls @ 600 mls/hr IV Q30M PRN PRN Reason: EBL >1200mL and within 3hr Ampicillin Sodium 1 gm/ Sodium (Chloride) 100 mls @ 200 mls/hr IV Q4H KEENAN Ropivacaine (Naropin 0.2%) 200 mg in 100 mls @ 0 mls/hr EP PRN PRN; Protocol PRN Reason: PAIN Labetalol HCl (Labetalol 20 Mg/4 Ml Syringe) 20 - 80 mg IVP Q10M PRN; Protocol PRN Reason: SBP> or= 160 OR DBP> or= 110 Labetalol HCl (Labetalol 20 Mg/4 Ml Syringe) 20 mg IVP .ONCE PRN; Protocol PRN Reason: SBP> or= 160 OR DBP> or= 110 Labetalol HCl (Labetalol 20 Mg/4 Ml Syringe) 20 - 40 mg IVP Q10M PRN; Protocol PRN Reason: SBP> or= 160 OR DBP> or= 110 Lidocaine HCl (Lidocaine 1% 20 Ml Mdv) 20 ml ID .ONCE PRN PRN Reason: PERINEAL REPAIR Stop: 12/25/23 19:58 Methylergonovine Maleate (Methylergonovine 0.2 Mg/Ml Vial) 0.2 mg IM .ONCE PRN PRN Reason: Hemorrhage Metoclopramide HCl (Metoclopramide 10 Mg/2 Ml Vial) 10 mg IVP Q6HR PRN PRN Reason: Nausea / Vomiting Misoprostol (Misoprostol 200 Mcg Tablet) 600 mcg BC .ONCE PRN PRN Reason: Hemorrhage Misoprostol (Misoprostol 200 Mcg Tablet) 800 mcg SC .ONCE PRN PRN Reason: Hemorrhage Misoprostol (Misoprostol 100 Mcg Tablet) 25 mcg VG Q4H KEENAN Last Admin: 12/23/23 13:10 Dose: 25 mcg Nalbuphine HCl (Nalbuphine 10 Mg/Ml Amp) 2.5 - 5 mg IVP Q4H PRN PRN Reason: ITCHING Naloxone HCl (Naloxone 0.4 Mg/Ml Vial) 0.1 mg IVP Q2M PRN PRN Reason: RR<8 Nifedipine (Nifedipine 10 Mg Capsule) 10 - 20 mg PO Q20M PRN; Protocol PRN Reason: SBP> or= 160 OR DBP> or= 110 Ondansetron HCl (Ondansetron 4 Mg/2 Ml Vial) 4 mg IVP Q6HR PRN PRN Reason: Nausea / Vomiting Oxytocin (Oxytocin 10 Unit/Ml Vial) 10 unit IM .ONCE PRN PRN Reason: Step One if no IV access. Sodium Chloride (Sodium Chloride Flush 0.9% 10 Ml Syringe) 10 ml IVP PRN PRN PRN Reason: NEEDED PER PROVIDER ORDERS Sodium Chloride (Sodium Chloride Flush 0.9% 10 Ml Syringe) 10 ml IVP Q8H KEENAN Terbutaline Sulfate (Terbutaline 1 Mg/Ml Vial) 0.25 mg SUBQ .ONCE PRN PRN Reason: Tachystole Home Medications Unobtainable [HOME MEDICATIONS UNOBTAINABLE] 12/23/23 Allergies/Adverse Reactions: Allergies Allergy/AdvReac Type Severity Reaction Status Date / Time No Known Drug Allergies Allergy Verified 06/24/23 13:59 Anes History & Medical History - Anesthetic History Anesthesia Complications: reports: No previous complications Family history of Anesthesia Complications: Denies Family history of Malignant Hyperthermia: Denies - Medical History Cardiovascular: reports: None Pulmonary: reports: None Gastrointestinal: reports: None Urinary: reports: None Neuro: reports: None Musculoskeletal: reports: None Endocrine/Autoimmune: reports: None Blood Disorders: reports: None Skin: reports: None Smoking Status: Never smoker - Surgical History Gynecologic: reports: Other - Obstetrical History : 1 Parity: 0 Events: reports: Other (1. Laparoscopic appendectomyin early 2. dated by tri U/S - inconsistent with LMP 3. asymmetric IUGR (small head, normal abd, long legs) on 20w cherry sono at [facility]. MFM referral placed but MFM suggested repeating ultrasound prior to referral. -28-week EFW 20th percentile 1040 g) Exam General: Alert, Oriented x3, Cooperative Dental: WNL Respiratory: No respiratory distress Cardiovascular: Regular rate Plan Anesthesia Type: Epidural Consent for Procedure(s) Verified and Reviewed: Yes Code Status: Attempt Resuscitation ASA classification: 2-Mild systemic disease Is this case an emergency?: No
[2023-12-23] MEDS: AMPICILLIN 1 GM in SODIUM CHLORIDE 0.9% MINIBAG 100 ML IV SCH (17:42)
--- NOTE | 2023-12-23 17:49 | MISCELLANEOUS PROVIDER NOTE ---
Miscellaneous Provider Note - - Note: RN asked for IUPC placement due to difficulty monitoring contractions. SVE /-2. IUPC placed without difficulty. Progressing on her own after SROM. Will continue to monitor. Repeat SVE in 4-6 hours. Discussed possibly starting pitocin if contractions space out.
[2023-12-23] MEDS: OXYTOCIN/SODIUM CHLORIDE 500 ML IV PRN (23:02)
--- NOTE | 2023-12-24 01:17 | MISCELLANEOUS PROVIDER NOTE ---
Miscellaneous Provider Note - - Note: I was called by RN for deceleration followed by late decelerations which occurred after repositioning patient for cervical exam. Patient was on pitocin at 1 which was turned off and then she was placed in hands and knees. RN requested I see patient at bedside. On my arrival at bedside FHTs had improved and Cat 1 and remained so for ~ 90 min. She then had another deceleration (broken tracing, possibly tracing maternal heart rate at times) with an episode of hypotension (80/60s). IV fluid bolus initiated. FSE was placed with patient consent and FHTs recovered and again Cat 1. SVE 3.590. Will continue to monitor closely. We have discussed possible delivery in decelerations become more persistent. She is agreeable with continuation of IOL if FHTs allow.
[2023-12-24] MEDS: diphenhydrAMINE 25 MG CAPSULE PO PRN (01:31)
[2023-12-24] MEDS: ePHEDrine 50 MG/ML VIAL IVP PRN (03:23)
[2023-12-24] MEDS ORDERED: ePHEDrine 50 MG/ML VIAL IVP ONE ×3 (04:34→12:17)
[2023-12-24] MEDS ORDERED: PHENYLEPHRINE HCL 0.5 MG/5 ML AMPULE ONE (04:48)
[2023-12-24] MEDS: OXYTOCIN/SODIUM CHLORIDE 500 ML IV SCH (06:28)
[2023-12-24] MEDS: ONDANSETRON 4 MG/2 ML VIAL IVP PRN (09:31)
[2023-12-24] MEDS: ROPIVACAINE 0.2% 200 MG/100 ML BAG EP PRN (10:15)
--- NOTE | 2023-12-24 11:41 | PROVIDER PROGRESS NOTE ---
Labor Progress Note - Uterine Monitoring Uterine Monitoring Mode: positive: IUPC Contraction Frequency (min/apart): 2 Contraction Intensity: positive: Mild to moderate Uterine Resting Tone: positive: Soft - Monitoring Monitor Mode: positive: Spiral electrode Heart Rate Baseline: 120 Heart Rate Variability: positive: Moderate (6-25 bmp) Accelerations: positive: Present, 15x15 Decelerations: positive: Early, Late, Variable Strip Review: positive: Category II (Assumed care 0800. Initially with occasional early, variable, late decelerations. Resolved to Cat 1.) - Vaginal Exam Dilation (in cm): 4 Effacement (%): 100 Station: -2 Cervical Position: Midposition - Labor Progress Note Labor Progress Note/Additional Text: 23yo at 38.4w admitted for IOL for assymmetric IUGR - Pitocin at 1mu/m initially, able to increase to 8mu/m - Cat 1-2. Occasional early, variable, late decelerations which resolve. Discussed with patient if she does not progress by next exam 1430, plan for PCD for failed IOL. Earlier delivery as indicated for intolerance. She understands and is open for PCD. - Continue antibiotics for positive GBS.
[2023-12-24] MEDS ORDERED: AZITHROMYCIN INJ 500 MG in SODIUM CHLORIDE 0.9% 250 ML IV SCH ×2 (12:00→12:30)
[2023-12-24] MEDS ORDERED: SODIUM CHLORIDE 0.9% 10 ML VIAL IVP ONE ×2 (12:17→13:08)
[2023-12-24] MEDS ORDERED: LIDOCAINE 2%-EPI 1:100000 20 ML MDV ONE (12:17)
[2023-12-24] MEDS ORDERED: BUPIVACAINE 0.5% PF 10 ML VIAL ONE (12:37)
[2023-12-24] MEDS ORDERED: KETOROLAC 30 MG/ML VIAL ONE (12:43)
[2023-12-24] MEDS ORDERED: ONDANSETRON 4 MG/2 ML VIAL ONE (12:43)
[2023-12-24] MEDS ORDERED: ceFAZolin 1 GM in SODIUM CHLORIDE 0.9% MINIBAG 100 ML IV SCH (13:00)
[2023-12-24] MEDS ORDERED: ROPIVACAINE 0.5% PF 20 ML VIAL ONE (13:08)
[2023-12-24] MEDS ORDERED: METOCLOPRAMIDE 10 MG/2 ML VIAL IVP PRN (13:14)
[2023-12-24] MEDS ORDERED: MORPHINE 2 MG/ML CARPUJECT IVP PRN (13:14)
[2023-12-24] MEDS ORDERED: fentaNYL 100 MCG/2 ML VIAL IVP PRN (13:14)
[2023-12-24] MEDS ORDERED: NALOXONE 0.4 MG/ML VIAL IVP PRN ×2 (13:14→13:43)
[2023-12-24] MEDS ORDERED: ONDANSETRON 4 MG/2 ML VIAL IVP PRN (13:14)
[2023-12-24] MEDS ORDERED: ATROPINE ABBOJECT 1 MG/10 ML SYRINGE IVP PRN (13:14)
[2023-12-24] MEDS ORDERED: HYDROmorphone 0.5 MG/0.5 ML SYRINGE IVP PRN (13:14)
[2023-12-24] MEDS ORDERED: ePHEDrine 50 MG/ML VIAL IVP PRN (13:14)
[2023-12-24] MEDS ORDERED: NIFEdipine 10 MG CAPSULE PO PRN (13:43)
[2023-12-24] MEDS ORDERED: LABETALOL 20 MG/4 ML SYRINGE IVP PRN (13:43)
[2023-12-24] MEDS ORDERED: OXYTOCIN/SODIUM CHLORIDE 500 ML IV PRN (13:43)
[2023-12-24] MEDS ORDERED: WITCH HAZEL/GLYCERIN 1 PAD TOP PRN (13:43)
[2023-12-24] MEDS: LACTATED RINGERS 200 ML IV ONE (13:48)
--- NOTE | 2023-12-24 13:49 | OPERATIVE REPORT ---
Operative Report - General Admit Date: 12/22/23 Procedure Date: 12/24/23 Planned Procedure: Primary section Pre-Op Diagnosis: 23yo with IUP at 38.4w, IUGR, intolerance, failed IOL (4cm) Procedure Performed: Primary section Post Op Diagnosis: 23yo with IUP at 38.4w, IUGR, intolerance, failed IOL (4cm) - Procedure Note Primary Surgeon: Karina Delatorre DO Secondary Surgeon: Lizabeth Ortega CNM; assistance required for retraction, safe completion Anesthesia Provider: Felix Rios CRNA Anesthesia Technique: Epidural Pathology: None, placenta discarded Estimated Blood Loss (mL): 600 Findings: Viable female Apgars 8, 9 Normal appearing uterus, tubes, ovaries Complications: None - Other Other Information/Narrative: Under epidural anaesthetic with a Flores catheter inserted, the patient was prepped and draped in the usual sterile fashion in the supine position with a leftward tilt. A Pfannensteil incision was made. The incision was carried down to the fascia with sharp dissection and cautery. The fascia was incised transversely and dissected off the rectus muscle using blunt dissection. Electrocautery was used for hemostasis. The peritoneum was opened taking care not to injure the bladder. The vesicouterine peritoneum was dissected off the lower uterine segment. The lower segment was assessed and a low transverse incision was made. The uterine incision was extended bluntly. The fetus was presenting as a vertex. The head was delivered without difficulty and the rest of the body followed easily. After one minute of delayed cord clamping, the cord was clamped twice and cut and the baby transferred to the warmer, awaiting the pediatric staff. Cord blood collected. The placenta was then delivered spontaneously. The uterus was explored and was empty of all tissue. The uterus was exteriorized for better visualization. The uterine incision was then closed in two layers with 0- Monocryl suture. The first layer was locking and the second was imbricating. Tubes and ovaries were examined and appeared normal. Hemostasis at all dissection sites. The fascia was closed with 0-Vicryl in a running unlocked fashion. Subcutaneous layer reapproximated with 2-0 chromic. The skin was then reapproximated with 3-0 Monocryl. At the end of the procedure all sponges, instruments, and sharps were counted and correct. Estimated blood loss was 600 ml. The patient and baby girl Tosha were taken to the recovery in stable condition. The female weighed 2839 grams, and Apgars were 8 and 9 at 1 and 5 minutes respectively.
--- NOTE | 2023-12-24 13:58 | DELIVERY NOTE ---
Delivery Note - Labor Labor: positive: Augmented by oxytocin - Delivery Method Delivery Method: positive: Primary - Cervical Ripening Method Cervical Ripening Method: positive: Misoprostil - Presentation Presentation: positive: Vertex - Nuchal Cord Nuchal Cord: positive: None - Anesthetic Anesthetic Type: - Amniotic Fluid Description Amniotic Fluid Description: positive: Clear - Episiotomy Type Episiotomy Type: positive: None - Laceration Laceration: positive: None - Delivery Outcome Delivery Outcome: positive: Livebirth - : positive: Bulb syringe, Stimulated, Warmed, [place] used, Warmer used sex: positive: Female - Cord Cord: positive: 3 vessels - Placenta Placenta: positive: Spontaneous - Estimated Blood Loss Estimated Blood Loss (in cc): 600 - Post Delivery Events Post Delivery Events: positive: No post delivery events - Delivery Comments (Free Text/Narrative) Delivery Comments (Free Text/Narrative): See uncomplicated primary section operative report.
[2023-12-24] MEDS ORDERED: LACTATED RINGERS 1,000 ML IV SCH (14:00)
--- NOTE | 2023-12-24 14:03 | ANESTHESIA POST OP EVALUATION ---
Anesthesia Post Eval - Post Anesthesia Eval Vitals: Last Vital Signs Temp 36.9 C 12/24/23 08:00 Pulse 77 12/24/23 08:00 Resp 16 12/24/23 08:00 BP 117/62 12/24/23 08:00 Pulse Ox O2 Flow Rate CV Function Including HR & BP: Stable Pain Control: Satisfactory Nausea & Vomiting: Negative Mental Status: Baseline Respiratory Status: Airway Patent Hydration Status: Satisfactory Anesthesia Complications: None
[2023-12-24] MEDS: LACTATED RINGERS 1,000 ML IV ONE (14:04)
[2023-12-24] MEDS: ACETAMINOPHEN 500 MG TABLET PO SCH (16:32)
[2023-12-24] MEDS: oxyCODONE 5 MG TABLET PO PRN (16:59)
[2023-12-24] MEDS: SIMETHICONE CHEW 80 MG TABLET PO PRN (17:48)
[2023-12-24] MEDS: KETOROLAC 30 MG/ML VIAL IVP SCH (20:02)
[2023-12-24] MEDS: SODIUM CHLORIDE FLUSH 0.9% 10 ML SYRINGE IVP SCH (20:04)
[2023-12-24] MEDS: DOCUSATE SODIUM 100 MG CAPSULE PO SCH (21:54)
[2023-12-24] MEDS ORDERED: SODIUM CHLORIDE 0.65% NASAL SPRAY NAS PRN (22:44)
[2023-12-25] MEDS: SODIUM CHLORIDE FLUSH 0.9% 10 ML SYRINGE IVP PRN (02:01)
[2023-12-25 06:02] LABS: HCT - HEMATOCRIT 29.5 % (37.0-47.0); HGB - HEMOGLOBIN 9.7 g/dL (12.0-16.0); MEAN CORPUSCULAR HEMOGLOBIN 29.8 pg (27.0-31.0); MEAN CORPUSCULAR HGB CONC 32.9 g/dL (32.0-36.0); MEAN CORPUSCULAR VOLUME 90.8 fL (81.0-99.0); MEAN PLATELET VOLUME 11.5 fL (7.9-10.8); RED BLOOD COUNT 3.25 10^6/uL (4.20-5.40); RED CELL DISTRIBUTION WIDTH 13.5 % (12.0-15.0); WHITE BLOOD COUNT 10.8 x10^3/uL (4.8-10.8)
[2023-12-25] MEDS: guaiFENesin/DEXTROMETHORPHAN 10 ML UDC PO PRN (07:39)
--- NOTE | 2023-12-25 10:19 | PROVIDER PROGRESS NOTE ---
Subjective - Prog Note Date Prog Note Date: 12/25/23 Prog Note Time: 10:00 - Subjective Subjective: Comfortable with pain medications. Appropriate lochia. Ambulating. Voiding. Passing flatus. well. Tolerating regular diet. Understands need f or PCD and happy with delivery. Objective - Vital Signs/Intake & Output Reviewed Vital Signs: Yes Vital Signs: Vital Signs x48h Temp Pulse Resp BP Pulse Ox 12/25/23 05:15 18 96 12/25/23 04:05 98.1 F 88 16 112/70 90 L Intake & Output: Intake & Output 12/22/23 12/23/23 12/24/23 12/25/23 23:59 23:59 23:59 23:59 Intake Total 1262.243 9875.350 1041.667 Output Total 300 2725 700 Balance 1147.917 234.350 341.667 - Objective General Appearance: positive: No acute distress Respiratory: positive: No respiratory distress Cardiovascular: positive: Other (Regular rate) Abdomen: positive: Non-tender Back: positive: Nml inspection Skin: positive: Color nml Extremities: positive: Non-tender Neurologic/Psychiatric: positive: Oriented x3 - Lab Results Fish Bones: 12/25/23 05:56 Other Labs: Lab Results x24hrs 12/25/23 Range/Units 05:56 WBC 10.8 (4.8-10.8) x10^3/uL RBC 3.25 L (4.20-5.40) 10^6/uL Hgb 9.7 L (12.0-16.0) g/dL Hct 29.5 L (37.0-47.0) % MCV 90.8 (81.0-99.0) fL MCH 29.8 (27.0-31.0) pg MCHC 32.9 (32.0-36.0) g/dL RDW 13.5 (12.0-15.0) % Plt Count 199 (130-450) 10^3/uL MPV 11.5 H (7.9-10.8) fL Assessment/Plan - Problem List (1) care following delivery Impression: 23yo s/p PCD for intolerance following IOL for IUGR, POD#1 recovering well - Continue /postoperative care, may shower today - Anticipate discharge tomorrow
[2023-12-25] MEDS: IBUPROFEN 600 MG TABLET PO SCH (16:44)
[2023-12-26 08:58] VITALS: O2SAT 99
[2023-12-26] MEDS: CALCIUM CARBONATE CHEW 500 MG TABLET PO PRN (08:58)
[2023-12-26] MEDS ORDERED: CALCIUM CARBONATE CHEW 500 MG TABLET PO SCH (09:00)
[2023-12-26 14:08] VITALS: BP 134/84
--- NOTE | 2023-12-26 15:43 | Labor Flowsheet ---
Labor Flowsheet Datetime Report Generated by CPN: 12/26/2023 15:43 Datetime: 12/25/2023 09:56 VITAL SIGNS NBP Sys/Anju/Mean (mmHg): 123 : 88 : 96 Pulse: 69 LaborFlag: Labor Datetime: 12/25/2023 04:19 SpO2 (%): 96 Datetime: 12/25/2023 03:00 Stage of : Labor Provider Reviewed Strip: No COMMUNICATION Communication: Call/Page Placed to Provider Provider Notified (Name): Dr Delatorre Notification Reason: Status Update; Other Communication Comments: Clarification of orders and POC for cervical ripening and antibiotics proph ylaxis for prolonged PROM/SROM Datetime: 12/24/2023 12:30 UTERINE ACTIVITY Monitor Mode: External Frequency (min): 0 Contraction Comments: no cxtns traced ASSESSMENT A Monitor Mode: External US FHR Baseline Rate : 135 Variability: Moderate 6-25 bpm Accelerations: 15X15 Decelerations: None Category: Category I Comments: Broken FHT Datetime: 12/24/2023 12:15 Resting Tone IUP (mmHg): 0 Intensity IUP (mmHg): 30 [place] Units (mmHg): 60 Datetime: 12/24/2023 12:11 Patient Care Comments: extrenal UA and TOCO applied Datetime: 12/24/2023 12:00 Pattern: Normal: <= 5 Contractions in 10 Minutes Actions for Decelerations: Pitocin Off Datetime: 12/24/2023 11:46 VAGINAL EXAM Dilatation (cm): 4.0 Effacement (%): 100 Station: -2 Datetime: 12/24/2023 11:41 Patient Position/Activity: Left Lateral Datetime: 12/24/2023 11:30 Pitocin Checklist: At Least 1 Acceleration of 15 bpm x 15 Seconds in 30 Minutes or Adequate Variabi lity; No More than 1 Late Deceleration Occurred in Past 30 Minutes; No More than 2 Variable Decelerat ions > 60 Seconds in Duration and decreasing >60 bpm in 30 minutes; No More than 5 Uterine Contractio ns in 10 Minutes for any 20 Minute Interval; Uterus Palpates Soft between Contractions; IUPC Resting Tone less than 25 mmHg Datetime: 12/24/2023 10:53 Antibiotics: Ampicillin IV 1 Gm Datetime: 12/24/2023 09:45 Quality: Moderate Resting Tone (Palpate): Relaxed Datetime: 12/24/2023 09:31 Antiemetics/Antacids: Zofran (mg) @ 4 Datetime: 12/24/2023 09:10 Medication Comments: VO from Dr.Cayauab Datetime: 12/24/2023 07:29 I/O Interventions: Clear Liquids Given Datetime: 12/24/2023 06:28 Exam by: MKnudsen Vaginal Bleeding: None Cervix, Consistency: Soft Cervix, Position: Midposition Vaginal Exam Comments: no change Datetime: 12/24/2023 06:02 Duration (sec): 60 FHR Baseline Changes: No Baseline Change Anesthesia Level Check: T11 Datetime: 12/24/2023 06:00 Respirations: 16 Temperature (C): 36.8 Temperature Route: Oral Datetime: 12/24/2023 05:06 Pain Presence: None/Denies Pain Coping: Talking Through Contractions Amniotic Fluid Amount: None PROCEDURE TIME OUT Procedure Verify: Safety Precautions Based on Patient History or Medication Use TEACHING Instructional Method: Verbal Plan of Care: Plan of Care Discussed Pain Management: Epidural Teaching Comments: anesthesia discussed change in epidural regime and spinal for cs if needed Datetime: 12/24/2023 04:52 Anesthesia Comments: c Rios at bs change epidural to continuous Datetime: 12/24/2023 04:22 Magnesium/Antihypertensives: Ephedrine IV (mg) @ 5 Datetime: 12/24/2023 02:00 PAIN Pain Scale: 4 Pain Location: Abdomen Pain Relief Measures: CHIEF INFORMATION OFFICER Use Pain Assessment Comments: Ansethesia notified that pt used CHIEF INFORMATION OFFICER...may use PCA3 more times then notif y anesthesia to come in Datetime: 12/24/2023 01:35 Monitor Interventions for FHR: FSE Applied Unit Routine: Monitoring Labor/Induction: Interventions Datetime: 12/23/2023 23:58 Strip Reviewed by: M Mireya Datetime: 12/23/2023 23:57 [place] UNITS (Computed) Contractions in Ten Minutes: 4 Datetime: 12/23/2023 23:51 MEDICATIONS Pitocin (milliunits): Discontinued Datetime: 12/23/2023 23:42 Procedures: Sterile Vag Exam Datetime: 12/23/2023 22:01 PATIENT CARE IV/Blood Work: IV Bolus Given ml @ 500; New IV Bag Hung Datetime: 12/23/2023 21:46 [place] Units (mmHg): 300 Datetime: 12/23/2023 21:02 Membrane Status: Meconium Amniotic Fluid Color: Clear Amniotic Fluid Odor: Normal Datetime: 12/23/2023 20:45 IUPC Average Intensity: 25 IUPC Average Resting Tone: 10 Datetime: 12/23/2023 20:30 MATERNAL ASSESSMENT Level of Consciousness: Alert DTR's/Clonus: DTRs 1+ Headache: Denies Nausea/Vomiting: Denies RUQ Epigastric Pain: Denies Datetime: 12/23/2023 20:18 Monitor Interventions for UA: [place] Adjusted Datetime: 12/23/2023 14:49 Epidural Procedure: Cath Placed; Test Dose Datetime: 12/23/2023 14:39 ANESTHESIA Epidural Positioning: Sitting Datetime: 12/23/2023 14:04 Membrane Comments: moderate amount of clear fluid gush upon pt standing at bedside Datetime: 12/23/2023 13:09 Cervical Ripening Agents: Cytotec @ Datetime: 12/23/2023 13:05 Membranes Rupture Method: Spontaneous Datetime: 12/22/2023 22:19 Membranes Ruptured Date/Time: 12/23/2023 13:05
--- NOTE | 2023-12-26 22:02 | DISCHARGE SUMMARY ---
"Discharge Summary Admit Date: 12/22/23 Discharge Date: 12/26/23 Discharging Provider: Lilly Briggs MD Code Status: Attempt Resuscitation Condition at Discharge: Good - DIAGNOSES Admission Diagnoses: IUGR fetus at term Discharge Diagnoses with Status of Each Condition: fetus delivered., 6lb 3 oz intolerance of labor and failed induction of labor. delivery by primary low transverse c section - HPI History of Present Illness: complicated by small baby, admitted for induction due to asymmetric IUGR. Appendectomy early in . - CONSULTS | PROCEDURES Procedures: labor induction with misoprostol primary low transverse c section - HOSPITAL COURSE Hospital Course: patient was admitted 12/21 for induction. started with miso. after SROM was having spontaneous labor but only progressed to 4 cm. had epidural but not further progress. intolerance to labor. Primary low transverse c section done on 12/23, still 4 cm. Baby Tosha Toure was born at 1:02 pm. 6 lb 3 oz and 17 3/4 in long. post op course went well. She was pumping and bottle feeding as well as putting baby to breast. Doing well. Did not want to stay longer to work on feeding, although this was offered. Some questions regarding insurance for baby. The social science analyst came and provided assistance. - ALLERGIES Allergies/Adverse Reactions: Allergies Allergy/AdvReac Type Severity Reaction Status Date / Time No Known Drug Allergies Allergy Verified 06/24/23 13:59 - MEDICATIONS Home Medications: Ambulatory Orders Medication Instructions Recorded Confirmed Acetaminophen 650 mg PO Q4HR PRN #30 ea 12/26/23 Docusate Sodium 100Mg Capsule 100 - 200 mg PO BID PRN #60 cap 12/26/23 [Colace 100Mg Capsule] Ibuprofen [Motrin] 600 mg PO Q6H PRN #30 tab 12/26/23 oxyCODONE [Roxicodone] 5 mg PO Q4HR PRN #12 tab 12/26/23 - PHYSICAL EXAM AT DISCHARGE General Appearance: positive: No acute distress Respiratory: positive: No respiratory distress Cardiovascular: positive: Regular rate & rhythm Abdomen: positive: Other (wound healing well. ) - LABS Result Diagrams: 12/25/23 05:56 - FOLLOW UP Follow Up: 1 week - TIME SPENT Time Spent in Discharge (Minutes): 30"
== END 2023-12-26 15:35 | disposition home or self-care (01) | DRG 788 ==
LOC: WFO 19:10 → FBP 19:12 → WFO 19:57 → FBP 19:58
PROVIDERS: ADMIT Obstetrics & Gynecology; ATTEND Obstetrics & Gynecology
PROC: 3E0DXGC Introduction of Other Therapeutic Substance into Mouth and Pharynx, External Approach (ICD-10-PCS; 2023-12-22)
PROC: 10H07YZ Insertion of Other Device into Products of Conception, Via Natural or Artificial Opening (ICD-10-PCS; 2023-12-23)
PROC: 10D00Z1 Extraction of Products of Conception, Low, Open Approach (ICD-10-PCS; principal; 2023-12-24 13:00)
DX: O36.5930 Maternal care for other known or suspected poor fetal growth, third trimester, not applicable or unspecified (principal); Z3A.38 38 weeks gestation of pregnancy; Z37.0 Single live birth; O99.824 Streptococcus B carrier state complicating childbirth; O76 Abnormality in fetal heart rate and rhythm complicating labor and delivery
CPT/HCPCS: 36415; 84112; 85025; 85027; 86850; 86900; 86901; A9270; J2372; J2795; J7120